=== PATIENT | male | born 1965 | race Caucasian/White ===

== ENCOUNTER → 2019-12-05 12:18 | Outpatient (BNVA) | payer SELFPAY | PROVIDERS: Visit Provider Specialist | DX: R20.0 Anesthesia of skin (principal) | CPT/HCPCS: 95909 ==

== ENCOUNTER → 2020-10-21 11:50 | Outpatient (BNVA) | payer SELFPAY | PROVIDERS: Visit Provider Specialist | DX: M25.522 Pain in left elbow (principal) | CPT/HCPCS: 73080 ==

== ENCOUNTER → 2020-12-10 08:22 | Outpatient (BNVA) | payer SELFPAY | PROVIDERS: Visit Provider Specialist | DX: G56.22 Lesion of ulnar nerve, left upper limb (principal); G56.03 Carpal tunnel syndrome, bilateral upper limbs | CPT/HCPCS: 95885; 95910; 99203 ==

== ENCOUNTER 2020-12-26 09:09 | Day surgery (SDC) | payer SELFPAY ==
[2020-12-25 10:48] VITALS: BMI 40.3
[2020-12-26] VITALS (8 sets, daily range): BP systolic 129–169; BP diastolic 95–109; PULSE 76–87; RESP 16–23; TEMP 36.1–36.6; O2SAT 94–100
[2020-12-26] MEDS: sodium chloride 0.9% 1,000 ML 30 ML IV (10:00)
--- NOTE | 2020-12-26 10:10 | ANES.PREANE2 ---
Pre-Anesthetic Assessment Pre-Anesthetic Assessment: Height/Weight: Height 1.68 m Weight 113.398 kg Temp Pulse Resp BP Pulse Ox 97.8 F 79 18 143/95 98 12/26/20 09:31 12/26/20 09:31 12/26/20 09:31 12/26/20 09:31 12/26/20 09:31 Preop Diagnosis: Carpal tunnel syndrome/Cubital tunnel syndrome left arm Proposed Procedure: Operation Date: 12/26/20 11:10 Proposed Procedures p right Carpal Tunnel Release [id number] G56.03 G56.21(Right) - Viraj Moreno MD s right Ulna Nerve Decompression(Right) - Viraj Moreno MD Was Beta Esteban taken within 24 hours: N/A Was Clonidine taken within 24 hours: N/A Last intake: Intake Last Liquid Date 12/25/20 Last Liquid Time 21:00 Last Solid Date 12/25/20 Last Solid Time 21:00 Social: Social History: Tobacco and No alcohol Exam: Pre-Anes Outpt Exam: alert, oriented x 3 and clear to auscultation bilaterally Airway: Submandibular: WNL Cervical ROM: WNL MP: 2 Pulmonary: Pulmonary: Cough CV/HEM: CV/HEM: None reported : : None reported Hepatic: Hepatic: None reported GI: GI: None reported Metabolic: Metabolic: None reported Musc/skel: Musc/skel: None reported Neuropsych: Neuropsych: Depression Anesthetic Plan: ASA status: 2 Anesthesia: General PFSH Anesthesia PFSH: Social History Smoking and tobacco status: current every day smoker (1 pack per day ) Data Anesthesia Cardiac Studies: No Data to Display
--- NOTE | 2020-12-26 10:58 | W.PM.OPSUD ---
Surgery/Procedure H&P Update DATE OF PROCEDURE: December 26, 2020 DATE H&P PERFORMED: 12/18/20 H&P UPDATE INFORMATION: I have reviewed H&P completed within last 30 days PREOP DIAGNOSIS: Carpal tunnel syndrome/Cubital tunnel syndrome left arm PLANNED PROCEDURE: Operation Date: 12/26/20 11:10 Proposed Procedures p Left Carpal Tunnel Release [id number] G56.03 G56.21(Left) - Viraj Moreno MD s right Ulna Nerve Decompression(Left) - Viraj Moreno MD
--- NOTE | 2020-12-26 11:00 | P.OP_ITS ---
Operative Report Date of procedure: December 26, 2020 Pre-op Diagnosis: Carpal tunnel syndrome/Cubital tunnel syndrome left arm Post-op diagnosis: same Post-op Findings: Same Procedure Done: Compression, left carpal tunnel release Pathology: none sent Surgeon: Viraj Moreno Anesthesia: General Tourniquet time (min): 15 Condition: stable Disposition: PACU Procedure: The patient was taken to the operating room and given a general anesthesia. A tourniquet was inflated to 225 mmHg. A timeout was performed. A 5 cm long incision was made behind the medial epicondyle. Dissection was accomplished bluntly under loupe magnification identifying the ulnar nerve proximally. Utilizing a hemostat the fascia over the nerve was elevated and incised proximally. Dissection was then carried distally behind the medial epicondyle and into the flexor carpi ulnaris musculature. Dissection was stopped with the first muscular branches identified. Elbow was brought through range of motion with the nerve seen to stay reduced behind the medial epicondyle. No formal transition was thought to be warranted. Wound edges were infiltrated with 10 cc of a half percent Marcaine solution. The wound was packed with a moist saline sponge. A 3 cm long incision was made in line with the fourth ray from the distal edge of the carpal tunnel extending proximally. The subcutaneous fat and palmar fascia was divided with a scalpel blade. Under loupe magnification the ulnar neurovascular bundle was identified distally. A hemostat could be passed under the transverse carpal ligament allowing the distal 25% to be divided. A slotted guide was then passed beneath the transverse carpal ligament and the middle 50% divided. Blunt scissors were then passed over the guide freeing the proximal ligament. The tourniquet was deflated. Hemostasis provided with electrocautery. Wound edges were infiltrated with 10 cc of a half percent Marcaine solution. Deep tissues were closed about the elbow were closed with with 2-0 Vicryl. Subcutaneous is closed with 3-0 Vicryl. The skin was closed with a running 3-0 Prolene over the elbow and interrupted Prolene sutures about the hand. Steri- Strips were applied over the elbow.. Xeroform gauze, 4 x 4's, compressive labral, and Raúl wrap, and a sling were applied. The patient was taken recovery room in stable condition.
[2020-12-26] MEDS: HYDROcodone-acetaminophen 5-325 mg Tablet 1 TAB PO (13:11)
--- NOTE | 2020-12-26 15:13 | ANE.PACU2 ---
Inpatient post-anesthesia follow up: Airway intact: Yes Vital signs: Temperature 97.8 F Pulse Rate 77 Respiratory Rate 18 Blood Pressure 129/96 Pulse Oximetry 96 Oxygen Delivery Me thod Room Air Oxygen Flow Rate 8 Fraction of Inspir ed Oxygen Hydration adequate: Yes Nausea and vomiting: No Pain level: 4 Mental status: Baseline
== END 2020-12-26 13:33 | disposition home or self-care (01) ==
PROVIDERS: PCP Nurse Practitioner; Visit Provider Orthopaedic Surgery
PROC: (CPT 64721; principal; 2020-12-26 10:50)
PROC: (CPT 64718; 2020-12-26 10:50)
DX: G56.02 Carpal tunnel syndrome, left upper limb (principal); G56.22 Lesion of ulnar nerve, left upper limb; F17.210 Nicotine dependence, cigarettes, uncomplicated
CPT/HCPCS: 64718; 64721; J0690; J1100; J2405; J2704; J2710; J3010; J3490; J7030

== ENCOUNTER → 2021-06-23 09:14 | Outpatient (BNVA) | payer BC, MEDICAID, SELFPAY | PROVIDERS: PCP Nurse Practitioner; Visit Provider Surgery | DX: Z86.010 Personal history of colon polyps (principal) | CPT/HCPCS: 87635 ==

== ENCOUNTER 2021-06-26 08:16 | Day surgery (SDC) | payer BC, MEDICAID, SELFPAY ==
--- NOTE | 2021-06-26 08:34 | ANES.PREANE2 ---
Pre-Anesthetic Assessment Pre-Anesthetic Assessment: Height/Weight: Height 1.68 m Weight 108.862 kg Preop Diagnosis: Abdominal pain and history of colon polyps Proposed Procedure: Operation Date: 06/26/21 09:30 Proposed Procedures p Colonoscopy 62376 Z86.010(Not Applicable) - Roger Barreto MD Was Beta Esteban taken within 24 hours: N/A Was Clonidine taken within 24 hours: N/A Social: Social History: Tobacco and No alcohol Exam: Pre-Anes Outpt Exam: alert, oriented x 3 and regular rate & rhythm Additional Exam Findings (including area of procedure): rhonchi Airway: Submandibular: WNL Cervical ROM: WNL MP: 2 Dentition: False Pulmonary: Pulmonary: COPD CV/HEM: CV/HEM: HTN Metabolic: Metabolic: Morbid obesity Neuropsych: Neuropsych: Neuropathy (upper extremity) Anesthetic Plan: ASA status: 3 Anesthesia: MAC Risk of > 500 ml blood loss (7ml/kg in children): No Data Anesthesia Cardiac Studies: No Data to Display
[2021-06-26 08:45] VITALS: BP 133/97; PULSE 88; RESP 16; TEMP 36.6; O2SAT 97
[2021-06-26] MEDS: sodium chloride 0.9% 1,000 ML 30 ML IV (08:59)
--- NOTE | 2021-06-26 09:11 | P.HP_ITS ---
Same Day Surgery H&P Indication for Procedure/HPI DATE OF PROCEDURE: June 26, 2021 CHIEF COMPLAINT/INDICATIONFOR SURGICAL PROCEDURE: Abdominal pain and colon polyps PREOP DIAGNOSIS: Abdominal pain and history of colon polyps PLANNED PROCEDRUE: Operation Date: 06/26/21 09:30 Proposed Procedures p Colonoscopy 97710 Z86.010(Not Applicable) - Roger Barreto MD 04/14/21 This is a pleasant 55 years old gentleman with history of obesity and a current weight of 240 pounds and a BMI of 38.7. Smoker. Comes today concerning about his umbilical hernia that is hurting him. Patient reports that he had this hernia for a while but it is becoming bothering him. Previous colonoscopy was done few years ago and had polyps removed. Patient describes abdominal pain being sharp and whenever he hits his abdomen it does hurt and gets better by nothing in particular. The pain is not being referred. Patient is referred to my practice for further evaluation and potential management. 06/26/21 Patient comes today for surveillance colonoscopy, unfortunately insurance denied the CT scan of the abdomen and pelvis and patient continues to have his abdominal wall hernia. The CT scan was ordered in preparation and planning for surgery ROS All systems have been reviewed negative except as for the above or per problem list Medications/Allergies* Home Medications Medication Instructions Recorded Confirmed Type furosemide 20 mg tablet 20 mg PO DAILY 04/14/21 06/26/21 History quetiapine 25 mg tablet 50 mg PO DAILY 04/14/21 06/26/21 History Allergies/Adverse Reactions Allergy/AdvReac Type Severity Reaction Status Date / Time acetaminophen [From Percocet] Allergy Severe feels Verified 06/26/21 09:15 like bugs crawling oxycodone [From Percocet] Allergy Severe feels Verified 06/26/21 09:15 like bugs crawling Current Medications: Generic Name Dose Route Start Last Admin Trade Name Freq PRN Reason Stop Dose Admin Sodium Chloride 1,000 mls @ 30 mls/hr 06/26/21 08:30 06/26/21 08:59 Sodium Chloride 0.9% IV 30 mls/hr .Q24H MAHENDRA Administration Pertinent Exam Findings alert, oriented x 3 and procedure specific exam findings (Abdominal examination nontender nondistended morbidly obese with umbilical ) Chronically incarcerated umbilical hernia Recommendations Surgery/Procedure today (Colonoscopy with possible biopsy) Coding Level of Care Code Acute Return To Vendor for Isela Christina
[2021-06-26 10:50] VITALS: BP 140/105; PULSE 79; RESP 16; TEMP 36.3; O2SAT 99
[2021-06-26 11:06] VITALS: BP 142/89; PULSE 72; RESP 18; O2SAT 97
--- NOTE | 2021-06-26 11:19 | ANE.PACU2 ---
Inpatient post-anesthesia follow up: Airway intact: Yes Vital signs: Temperature 97.4 F Pulse Rate 72 Respiratory Rate 18 Blood Pressure 142/89 Pulse Oximetry 97 Oxygen Delivery Me thod Room Air Oxygen Flow Rate 3 Fraction of Inspir ed Oxygen Hydration adequate: Yes Nausea and vomiting: No Pain level: 1 Mental status: Baseline
== END 2021-06-26 11:45 | disposition home or self-care (01) ==
PROVIDERS: PCP Nurse Practitioner; Visit Provider Surgery
PROC: 0DJD8ZZ Inspection of Lower Intestinal Tract, Via Natural or Artificial Opening Endoscopic (ICD-10-PCS; CPT 45378; principal; 2021-06-26 09:30)
DX: Z12.11 Encounter for screening for malignant neoplasm of colon (principal); Z86.010 Personal history of colon polyps; F17.210 Nicotine dependence, cigarettes, uncomplicated; K63.89 Other specified diseases of intestine; J44.9 Chronic obstructive pulmonary disease, unspecified; I10 Essential (primary) hypertension; E66.01 Morbid (severe) obesity due to excess calories; Z68.38 Body mass index [BMI] 38.0-38.9, adult
CPT/HCPCS: 45380; 88305; 96360; 96361; J2704; J7030

== ENCOUNTER 2021-08-07 09:46 | Outpatient (CLI) | payer BC, MEDICAID, SELFPAY ==
--- NOTE | 2021-08-07 10:15 | US_ITS ---
WS: [id number] ULTRASOUND ABDOMEN CLINICAL INFORMATION: R10.9 - Unspecified abdominal pain COMPARISON: None. FINDINGS: Supraumbilical hernia measuring 3.4 x 1.5 cm with hernia neck measuring 1.5 cm. Associated vascularity. Herniated soft tissue likely omentum extends into the hernia defect. No definite perista lsis visualized. Bowel appears to abut the defect but no definite herniated bowel. Recommend further evaluation with CT. Liver Size: Upper limits of normal Craniocaudal length: 15.8 cm. Echogenicity: Coarse Surface nodularity: None. Mass (size and location): None. Bile ducts Intrahepatic ducts: Normal. Common bile duct diameter: 0.4 cm. Gallbladder Normal. Gallstones: None. Gallbladder sludge: None. Gallbladder wall thickening: None. Pericholecystic fluid: None. Sonographic Gann sign: Absent. Pancreas Normal as visualized. Spleen Splenomegaly: Mild Craniocaudal length: 12.8 cm. Right kidney: Normal. Hydronephrosis: None. Size: 12.2 cm x 5.5 cm x 5.6 cm Left kidney: Normal. Hydronephrosis: None. Size: 13.3 cm x 4.6 cm x 5.8 cm. Abdominal aorta and IVC Visualized portions are normal. Ascites: None. US/US abdomen complete* [id number] IMPRESSION: 1. Liver size upper limits of normal with diffuse fatty infiltration. 2. Normal gallbladder. 3. No hydronephrosis in either kidney. 4. Mild splenomegaly. 5. Supraumbilical hernia measuring 3.4 x 1.5 cm with hernia neck measuring 1.5 cm. Herniated soft tissue that likely represents omentum. Bowel abuts the alyse ia neck although no definite visualized peristalsis within the hernia sac. This can be further evaluated with CT for better anatomic detail and to assess for herniated bowel.
== END 2021-08-07 09:47 | disposition home or self-care (01) ==
LOC: RAD 09:48
PROVIDERS: PCP Nurse Practitioner; Visit Provider Surgery
DX: R10.9 Unspecified abdominal pain (principal); K76.0 Fatty (change of) liver, not elsewhere classified; R16.1 Splenomegaly, not elsewhere classified; K43.9 Ventral hernia without obstruction or gangrene
CPT/HCPCS: 76700

== ENCOUNTER → 2021-08-11 10:31 | Outpatient (BNVA) | payer BC, MEDICAID, SELFPAY | PROVIDERS: PCP Nurse Practitioner; Visit Provider Surgery | DX: Z20.822 Contact with and (suspected) exposure to COVID-19 (principal) | CPT/HCPCS: 87635 ==

== ENCOUNTER 2021-08-12 11:15 | Day surgery (SDC) | payer BC, MEDICAID, SELFPAY ==
[2021-08-11 14:58] VITALS: BMI 38.3
[2021-08-12] VITALS (8 sets, daily range): BP systolic 131–145; BP diastolic 85–99; PULSE 74–87; RESP 17–18; TEMP 36.2–36.6; O2SAT 94–97
[2021-08-12] MEDS: sodium chloride 0.9% 1,000 ML 30 ML IV (12:25)
[2021-08-12] MEDS: heparin 5,000 unit/mL INJ 1 mL 3000 UNIT SUBCUT (12:28)
--- NOTE | 2021-08-12 12:46 | P.HP_ITS ---
Same Day Surgery H&P Indication for Procedure/HPI DATE OF PROCEDURE: August 12, 2021 CHIEF COMPLAINT/INDICATIONFOR SURGICAL PROCEDURE: My hernia is bothering me PREOP DIAGNOSIS: Symptomatic umbilical hernia PLANNED PROCEDURE: Operation Date: 08/12/21 13:30 Proposed Procedures p open supraumbilical hernia repair with poss mesh [id number]/63966/k42.9(Not Applicable) - Roger Barreto MD This is a pleasant 56 years old gentleman obese with a current weight of 245 pounds and a BMI of 38.4, patient presented to my practice back in 04/14/21 complaining of periumbilical hernia and he was due for colonoscopy regardless that was done and polyps were removed. Patient was supposed to get a CT scan of the abdomen pelvis per my request to have a better understanding of the underlying surgical damage hernia but that got denied per insurance. And patient undergone ultrasound of the abdomen that did show; 1.? Liver size upper limits of normal with diffuse fatty infiltration. 2.? Normal gallbladder. 3.? No hydronephrosis in either kidney. 4.? Mild splenomegaly. 5.? Supraumbilical hernia measuring 3.4 x 1.5 cm with hernia neck measuring 1.5 cm. Herniated soft tissue that likely represents omentum. Bowel abuts the hernia neck although no definite visualized peristalsis within the hernia sac. This can be further evaluated with CT for better anatomic detail and to assess for herniated bowel. Patient is scheduled for elective umbilical hernia repair with possible mesh placement ROS All systems have been reviewed negative except as per the above or per problem list Medications/Allergies* Home Medications Medication Instructions Recorded Confirmed Type furosemide 20 mg tablet (Lasix) 20 mg PO DAILY 04/14/21 08/12/21 History quetiapine 25 mg tablet (Seroquel) 50 mg PO DAILY 04/14/21 08/12/21 History Allergies/Adverse Reactions Allergy/AdvReac Type Severity Reaction Status Date / Time oxycodone [From Percocet] Allergy Severe feels Verified 08/12/21 12:48 like bugs crawling Current Medications: Generic Name Dose Route Start Last Admin Trade Name Freq PRN Reason Stop Dose Admin Sodium Chloride 1,000 mls @ 30 mls/hr 08/12/21 11:45 08/12/21 12:25 Sodium Chloride 0.9% IV 08/13/21 11:44 30 mls/hr .Q24H MAHENDRA Administration Pertinent Exam Findings alert, oriented x 3, regular rate & rhythm and procedure specific exam findings (Abdominal examination nontender nondistended soft periumbilical hernia) Pertinent Data Chronic incarcerated periumbilical hernia Recommendations Surgery/Procedure today (Open umbilical hernia repair with possible mesh placement) Other Plans: After thorough history physical examination reviewed the chart. Plan to perform an open umbilical hernia repair with possible mesh placement. The patient's, risks, benefits and alternatives all discussed with the patient did agree to proceed accordingly. Informed consent per chart. Patient understands the potential risks of being obese and higher chance of recurrence. Assurance and education All questions have been answered and all concerns have been addressed to patient's satisfaction. Coding Level of Care Code Acute Power Transformer Inspector for Isela Christina
--- NOTE | 2021-08-12 12:55 | ANES.PREANE2 ---
Pre-Anesthetic Assessment Height/Weight: Height 1.7 m Weight 111.13 kg Temp Pulse Resp BP Pulse Ox 97.8 F 74 17 135/85 95 08/12/21 11:57 08/12/21 11:57 08/12/21 11:57 08/12/21 11:57 08/12/21 11:57 Preop Diagnosis: Symptomatic umbilical hernia Operation Date: 08/12/21 13:30 Proposed Procedures p open supraumbilical hernia repair with poss mesh [id number]/k42.9(Not Applicable) - Roger Barreto MD Familial anesthetic complications: None Was Beta Esteban taken within 24 hours: N/A Was Clonidine taken within 24 hours: N/A Last intake: Intake Last Liquid Date 08/11/21 Last Liquid Time 18:00 Last Solid Date 08/11/21 Last Solid Time 18:00 Social Tobacco and No alcohol Exam alert, oriented x 3 and regular rate & rhythm b/l lung sounds diminished Airway Submandibular: within normal limits Cervical ROM: within normal limits Mallampati: Class I Dentition: false Pulmonary Denies ELOY, COPD, asthma CV/HEM Hypertension METS = 4 None reported Hepatic None reported GI None reported Metabolic None reported Musc/skel None reported Umbilical hernia Neuropsych None reported Anesthetic Plan ASA status: 2 Anesthesia: Anesthesia Evaluation and General Other: We discussed risk and benefits of general anesthesia including PONV, sore throat (sometimes severe), corneal abrasion, positioning and peripheral nerve injuries, life threatening allergic reaction, post operative ICU admission requiring prolonged intubation, stroke, heart attack, , and rare incidences of recall. Patient consents to proceed with general anesthesia. Risk of > 500 ml blood loss (7ml/kg in children): No Medications/Allergies Home Medications Medication Instructions Recorded Confirmed Last Taken Type furosemide 20 mg tablet (Lasix) 20 mg PO DAILY 04/14/21 08/12/21 08/11/21 History quetiapine 25 mg tablet (Seroquel) 50 mg PO DAILY 04/14/21 08/12/21 08/11/21 History Allergies Allergy/AdvReac Type Severity Reaction Status Date / Time oxycodone [From Percocet] Allergy Severe feels Verified 08/12/21 12:48 like bugs crawling Current Medications Generic Name Dose Route Start Last Admin Trade Name Freq PRN Reason Stop Dose Admin Sodium Chloride 1,000 mls @ 30 mls/hr 08/12/21 11:45 08/12/21 12:25 Sodium Chloride 0.9% IV 08/13/21 11:44 30 mls/hr .Q24H MAHENDRA Administration Data Anesthesia Cardiac Studies: No Data to Display
[2021-08-12] MEDS: acetaminophen 1,000 MG/100 ML PIGGYBACK 400 MG IV (13:02)
[2021-08-12 13:10] LABS: Blood Urea Nitrogen 14 mg/dL (6-20); Calcium 9.7 mg/dL (8.5-10.5); Carbon Dioxide 21 mmol/L (22-29); Chloride 105 mmol/L (98-107); Glomerular Filtration Rate 173.3 mL/min (90-130); Glucose 109 mg/dL (65-115); Osmolality Calculated 287 mOsm/kg (285-295); Sodium 138 mmol/L (136-145)
[2021-08-12 13:21] LABS: Anion Gap 16.4 (5-19); Potassium 4.4 mmol/L (3.5-5.1)
[2021-08-12] MEDS: lidocaine 2% INJ 20 mL INJECTION (14:04)
--- NOTE | 2021-08-12 14:35 | PM.OP ---
Operative Report Date of procedure: August 12, 2021 Pre-op diagnosis: Preop Diagnosis Symptomatic umbilical hernia Post-op findings: Umbilical fascial defect about an inch in diameter Procedure done: Open umbilical hernia repair with mesh placement on lay technique Implants: Polypropylene mesh 5 x 10 cm that was cut down to about 7 x 4 Specimens removed/disposition: Hernial sac and content Surgeon: Roger Barreto MD Orthopaedic General: Surgical techJeff Luna, and surgical instrument repair specialist Zach Estimated blood loss (mL): 5 IV fluids (mL): 600 Procedure: Patient was identified in holding area and the site of the hernia was marked by me ,Patient was brought then to the operating room, general endotracheal anesthesia was administered by the anesthesia provider.prophylactic IV antibiotics were given per protocol Timeout was done verifying the patient's name/date of /planned procedure and destination after the procedure, all were in agreement. SCDs confirmed to be functioning, preoperative antibiotics administered per protocol, and beta eunice protocol was confirmed. Prep and drape of the abdomen was done under the usual sterile technique. I started by infraumbilical skin incision,and dissection was carried till the hernia sac was identified and opened,following that trimming of the edges and excising the sac,were sac and contents(Omentum) were sent for pathology.At that point the fascial defect was about an inch in diameter, after freeing all the adhesions and freeing the overlying fat on top of the fascia,to facilitate primary closure, under direct visualization I was able to use #1 PDS to close the defect primarily, as an interrupted [id number] sutures,copious and through irrigation of the wound was then achieved and hemostasis. A piece of Polyproylene mesh was then decided upon and placed as an on lay technique and sutured to the underluing fascia using intrupted 2/0 silk sutures,Tension free.Following that a 2/0 Vicryl running,continiuos deep subdermal stitch was placed,followed by 3-0 Vicryl,then 4-0 Monocryl was used for subcuticular closure of the skin incision.Lidocaine 2% was used for local infiltration.Surical glue was then applied.Followed by appropraie size Abdominal Binder. Counts of sponges,needles and instruments were completed at the end of the procedure and specimen was verified. Patient tolerated the procedure well and was taken to the recovery area in stable condition after Extubation I was present for the whole entire procedure
[2021-08-12] MEDS: HYDROcodone-acetaminophen 5-325 mg Tablet 1 TAB PO (15:55)
--- NOTE | 2021-08-12 16:12 | ANE.PACU2 ---
Inpatient post-anesthesia follow up: Airway intact: Yes Vital signs: Temperature 97.2 F Pulse Rate 82 Respiratory Rate 18 Blood Pressure 131/99 Pulse Oximetry 96 Oxygen Delivery Me thod Room Air Oxygen Flow Rate 6 Fraction of Inspir ed Oxygen Hydration adequate: Yes Nausea and vomiting: No Pain level: 2 Mental status: Baseline
== END 2021-08-12 16:05 | disposition home or self-care (01) ==
PROVIDERS: PCP Nurse Practitioner; Visit Provider Surgery
PROC: (CPT 49585; principal; 2021-08-12 13:20)
DX: K42.9 Umbilical hernia without obstruction or gangrene (principal); K76.0 Fatty (change of) liver, not elsewhere classified; R16.1 Splenomegaly, not elsewhere classified
CPT/HCPCS: 49585; 36415; 80048; 88302; C1781; J0690; J1100; J1644; J2405; J2704; J2710; J3010; J3490; J7030

== ENCOUNTER → 2021-10-02 12:54 | Outpatient (BNVA) | payer BC, MEDICAID, SELFPAY | PROVIDERS: PCP Nurse Practitioner; Visit Provider Surgery | DX: Z09 Encounter for follow-up examination after completed treatment for conditions other than malignant neoplasm (principal); K63.9 Disease of intestine, unspecified ==

== ENCOUNTER → 2021-10-23 12:49 | Outpatient (BNVA) | payer BC, MEDICAID, SELFPAY | PROVIDERS: PCP Nurse Practitioner; Visit Provider Surgery | DX: Z98.890 Other specified postprocedural states (principal); K63.9 Disease of intestine, unspecified; F17.210 Nicotine dependence, cigarettes, uncomplicated ==

== ENCOUNTER 2022-03-16 20:00 | Outpatient (CLI) | payer BC, MEDICAID, SELFPAY | END 2022-03-16 20:01 | disposition home or self-care (01) | LOC: SLEEP 03-17 08:10 | PROVIDERS: PCP Nurse Practitioner; Visit Provider Nurse Practitioner | DX: G47.00 Insomnia, unspecified (principal); G47.33 Obstructive sleep apnea (adult) (pediatric) | CPT/HCPCS: 95810 ==

== ENCOUNTER 2022-05-25 06:40 | Day surgery (SDC) | payer BC, MEDICAID, SELFPAY ==
[2022-05-19 09:26] VITALS: BMI 40.3
--- NOTE | 2022-05-25 06:14 | W.PM.OPSFHP ---
Same Day Surgery H&P Indication for Procedure/HPI DATE OF PROCEDURE: May 25, 2022 CHIEF COMPLAINT/INDICATIONFOR SURGICAL PROCEDURE: History of colon polyps PREOP DIAGNOSIS: Symptomatic umbilical hernia PLANNED PROCEDURE: Operation Date: 05/25/22 08:45 Proposed Procedures p Colonoscopy 86688,Z86.010(Not Applicable) - Roger Barreto MD 08/20/2021 Patient comes today status post open umbilical hernia repair with mesh placement 08/12/2021.? Overall doing well and denies any complaints unfortunately he continues to smoke. Pathology did show Soft tissue, hernia sac , excision: ?Benign fibroadipose tissue with chronic inflammation, consistent with hernia sac contents. ?No malignancy identified. 10/02/2021 Patient comes today and overall has been feeling well and healing better.? Unfortunately continues to smoke and is not compliant with the abdominal binder as it rubs against the skin.? Patient continues to have obesity status with a weight of 250 pounds and BMI of 39. He denies any complaints related to his surgery 10/23/2021 Patient comes today for follow-up and he is completely healed.? Unfortunately continues to smoke and a current weight of 247 pounds and a BMI of 38.7 02/19/2022 She comes today for follow-up and he did have a colonoscopy back in June 2021 and at that time a cecal polyp was identified yet it was bigger in size and pathology at that time did show; Cecum, mucosal thickness lesion , biopsy: ? Fragmented tubular adenoma (adenomatous changes identified within glandular epithelium). ? No high-grade dysplasia identified. Because of the size of the polyp I did recommend to obtain repeat colonoscopy in/within a year time to secure complete excision of the polyp particularly that the patient is a high risk since his morbidly obese and a chronic smoker. 05/25/2022 Patient comes today for surveillance colonoscopy ROS All systems have been reviewed negative except as for the above or per problem list. Medications/Allergies* Home Medications Medication Instructions Recorded Confirmed Type ropinirole 3 mg tablet 3 mg PO DAILY 05/11/22 05/25/22 History trazodone 50 mg tablet 150 mg PO DAILY 05/11/22 05/25/22 History Allergies/Adverse Reactions Allergy/AdvReac Type Severity Reaction Status Date / Time oxycodone [From Percocet] Allergy Severe feels Verified 05/25/22 07:37 like bugs crawling Pertinent History/Comorbid Conditions* Medical History (Updated 05/11/22 @ 10:32 by Hermilo Lake DO) History of colon polyps Insomnia Sleep apnea Umbilical hernia Family History (Updated 05/11/22 @ 09:52 by Tiffanie Cartwright LPN) Cancer Mother Father Brother Social History Smoking and tobacco status: current every day smoker cigarettes Packs smoked per day: 2 Alcohol intake: current Alcohol intake frequency: holidays/special occasions only Pertinent Exam Findings alert, oriented x 3, regular rate & rhythm and procedure specific exam findings (Abdominal exam nontender nondistended soft) Recommendations Surgery/Procedure today (Colonoscopy with possible biopsy) Coding Level of Care Code Acute Fire Extinguisher Technician for Isela Christina
[2022-05-25 06:55] VITALS: BP 140/108; PULSE 89; RESP 18; TEMP 36.5; O2SAT 97
[2022-05-25] MEDS: sodium chloride 0.9% 1,000 ML 30 ML IV (07:01)
[2022-05-25 09:15] VITALS: BP 110/75; PULSE 71; RESP 20; TEMP 36.4; O2SAT 93
--- NOTE | 2022-05-25 09:18 | ANES.PREANE2 ---
Pre-Anesthetic Assessment Height/Weight: Height 1.68 m Weight 113.398 kg Temp Pulse Resp BP Pulse Ox O2 Del Method 97.7 F 89 18 140/108 97 05/25/22 06:55 05/25/22 06:55 05/25/22 06:55 05/25/22 06:55 05/25/22 06:55 05/25/22 06:55 Preop Diagnosis: History of colon polyp Operation Date: 05/25/22 08:45 Proposed Procedures p Colonoscopy 12697,Z86.010(Not Applicable) - Roger Barreto MD Familial anesthetic complications: none Was Beta Esteban taken within 24 hours: N/A Was Clonidine taken within 24 hours: N/A Last intake: Intake Last Liquid Date 05/24/22 Last Liquid Time 20:00 Last Solid Date 05/23/22 Last Solid Time 19:00 Social Tobacco and No alcohol Exam alert, oriented x 3 and regular rate & rhythm Airway Submandibular: within normal limits Cervical ROM: within normal limits Mallampati: Class II Dentition: false Pulmonary Chronic Obstructive Pulmonary Disease and Sleep Apnea Metabolic Morbid Obesity Neuropsych Neuropathy Anesthetic Plan ASA status: 3 Anesthesia: MAC Medications/Allergies Home Medications Medication Instructions Recorded Confirmed Last Taken Type ropinirole 3 mg tablet 3 mg PO DAILY 05/11/22 05/25/22 05/24/22 History trazodone 50 mg tablet 150 mg PO DAILY 05/11/22 05/25/22 05/24/22 History Allergies Allergy/AdvReac Type Severity Reaction Status Date / Time oxycodone [From Percocet] Allergy Severe feels Verified 05/25/22 07:37 like bugs crawling Current Medications Generic Name Dose Route Start Last Admin Trade Name Freq PRN Reason Stop Dose Admin Sodium Chloride 1,000 mls @ 30 mls/hr 05/25/22 07:00 05/25/22 07:01 Sodium Chloride 0.9% IV 05/26/22 06:59 30 mls/hr .Q24H MAHENDRA Administration PFSH Anesthesia Medical History (Updated 05/25/22 @ 09:17 by Roger Barreto MD) History of colon polyps Insomnia Sleep apnea Umbilical hernia Family History Mother Cancer Father Cancer Brother Cancer Social History Smoking and tobacco status: current every day smoker cigarettes Packs smoked per day: 2 Alcohol intake: current Alcohol intake frequency: holidays/special occasions only Data Anesthesia Cardiac Studies: No Data to Display
[2022-05-25 09:30] VITALS: BP 133/92; PULSE 81; RESP 18; O2SAT 99
--- NOTE | 2022-05-25 15:33 | ANE.PACU2 ---
Inpatient post-anesthesia follow up: Airway intact: Yes Vital signs: Temperature 97.6 F Pulse Rate 81 Respiratory Rate 18 Blood Pressure 133/92 Pulse Oximetry 99 Oxygen Delivery Me thod Room Air Oxygen Flow Rate 3 Fraction of Inspir ed Oxygen Hydration adequate: Yes Nausea and vomiting: No Pain level: 1 Mental status: Baseline
== END 2022-05-25 10:00 | disposition home or self-care (01) ==
PROVIDERS: PCP Nurse Practitioner; Visit Provider Surgery
PROC: 0DJD8ZZ Inspection of Lower Intestinal Tract, Via Natural or Artificial Opening Endoscopic (ICD-10-PCS; CPT 45378; principal; 2022-05-25 08:45)
DX: Z86.010 Personal history of colon polyps (principal); K57.30 Diverticulosis of large intestine without perforation or abscess without bleeding; D12.0 Benign neoplasm of cecum; D12.5 Benign neoplasm of sigmoid colon; J44.9 Chronic obstructive pulmonary disease, unspecified; G47.30 Sleep apnea, unspecified; E66.01 Morbid (severe) obesity due to excess calories; Z68.41 Body mass index [BMI] 40.0-44.9, adult; F17.210 Nicotine dependence, cigarettes, uncomplicated
CPT/HCPCS: 45385; 88305; J2704; J7030

== ENCOUNTER 2022-06-11 06:14 | Day surgery (SDC) | payer BC, MEDICAID, SELFPAY ==
[2022-06-09 08:24] VITALS: BMI 41.1
--- NOTE | 2022-06-11 06:16 | W.PM.OPSUD ---
Surgery/Procedure H&P Update DATE OF PROCEDURE: June 11, 2022 DATE H&P PERFORMED: 06/03/22 H&P UPDATE INFORMATION: I have reviewed H&P completed within last 30 days, I have examined patient prior to procedure and No changes to prior documentation CHANGES TO PREVIOUS DOCUMENTATION: The same PREOP DIAGNOSIS: Repeated nausea and vomiting PRIMARY INDICATION FOR PROCEDURE: The same PLANNED PROCEDURE: Operation Date: 06/11/22 07:30 Proposed Procedures p EGD 38743 R11.2(Not Applicable) - Roger Barreto MD
[2022-06-11 06:22] VITALS: BP 146/92; PULSE 86; RESP 18; TEMP 36.2; O2SAT 99
[2022-06-11] MEDS: sodium chloride 0.9% 1,000 ML 30 ML IV (06:29)
--- NOTE | 2022-06-11 07:01 | P.ANESASSM_ITS ---
Pre-Anesthetic Assessment Height/Weight: Height 1.68 m Weight 115.666 kg Temp Pulse Resp BP Pulse Ox O2 Del Method 97.2 F L 86 18 146/92 99 06/11/22 06:22 06/11/22 06:22 06/11/22 06:22 06/11/22 06:22 06/11/22 06:22 06/11/22 06:22 Preop Diagnosis: Repeated nausea and vomiting Operation Date: 06/11/22 07:30 Proposed Procedures p EGD 61127 R11.2(Not Applicable) - Roger Barreto MD Familial anesthetic complications: none Was Beta Esteban taken within 24 hours: N/A Was Clonidine taken within 24 hours: N/A Last intake: Intake Last Liquid Date 06/10/22 Last Liquid Time 23:00 Last Solid Date 06/10/22 Last Solid Time 18:00 Social Tobacco (>1 ppd, smoked this AM) and No alcohol Exam alert and oriented x 3 Airway Submandibular: within normal limits Cervical ROM: within normal limits Mallampati: Class III Dentition: false History/ROS No significant history except as noted Pulmonary Sleep Apnea CV/HEM None reported None reported Hepatic None reported GI Gastroesophageal Reflux Disease Metabolic Morbid Obesity [facility] [place] None reported Neuropsych None reported Anesthetic Plan ASA status: 3 Anesthesia: Anesthesia Evaluation and MAC Medications/Allergies Home Medications Medication Instructions Recorded Confirmed Last Taken Type ropinirole 3 mg tablet 3 mg PO DAILY 05/11/22 06/09/22 06/10/22 History Allergies Allergy/AdvReac Type Severity Reaction Status Date / Time oxycodone [From Percocet] Allergy Severe feels Verified 06/09/22 08:22 like bugs crawling Current Medications Generic Name Dose Route Start Last Admin Trade Name Freq PRN Reason Stop Dose Admin Sodium Chloride 1,000 mls @ 30 mls/hr 06/11/22 06:15 06/11/22 06:29 Sodium Chloride 0.9% IV 06/12/22 06:14 30 mls/hr .Q24H MAHENDRA Administration PFSH Anesthesia Medical History History of colon polyps Insomnia Sleep apnea Umbilical hernia Family History Mother Cancer Father Cancer Brother Cancer Social History Smoking and tobacco status: current every day smoker cigarettes Packs smoked per day: 2 Alcohol intake: current Alcohol intake frequency: holidays/special occasions only Data Anesthesia Cardiac Studies: No Data to Display
[2022-06-11 07:50] VITALS: BP 103/80; PULSE 79; RESP 18; TEMP 36.3; O2SAT 92
[2022-06-11 08:05] VITALS: BP 114/79; PULSE 67; RESP 18; O2SAT 96
--- NOTE | 2022-06-11 08:07 | ANE.PACU2 ---
Inpatient post-anesthesia follow up: Airway intact: Yes Vital signs: Temperature 97.4 F Pulse Rate 79 Respiratory Rate 18 Blood Pressure 103/80 Pulse Oximetry 92 Oxygen Delivery Me thod Room Air Oxygen Flow Rate Fraction of Inspir ed Oxygen Hydration adequate: Yes Nausea and vomiting: No Pain level: 1 Mental status: Baseline
== END 2022-06-11 08:31 | disposition home or self-care (01) ==
PROVIDERS: PCP Nurse Practitioner; Visit Provider Surgery
PROC: 0DJ08ZZ Inspection of Upper Intestinal Tract, Via Natural or Artificial Opening Endoscopic (ICD-10-PCS; CPT 43235; principal; 2022-06-11 07:30)
DX: K21.00 Gastro-esophageal reflux disease with esophagitis, without bleeding (principal); K29.50 Unspecified chronic gastritis without bleeding; K31.89 Other diseases of stomach and duodenum; R11.2 Nausea with vomiting, unspecified; B96.81 Helicobacter pylori [H. pylori] as the cause of diseases classified elsewhere; G47.30 Sleep apnea, unspecified; E66.01 Morbid (severe) obesity due to excess calories; Z68.41 Body mass index [BMI] 40.0-44.9, adult; F17.210 Nicotine dependence, cigarettes, uncomplicated
CPT/HCPCS: 43239; 88305; 88342; J2704; J7030

== ENCOUNTER 2022-07-01 01:00 | Outpatient (CLI) | payer BC, MEDICAID, SELFPAY | END 2022-07-01 23:00 | disposition home or self-care (01) | LOC: RAD 07-21 19:10 | PROVIDERS: PCP Nurse Practitioner; Visit Provider Surgery | DX: K30 Functional dyspepsia (principal) | CPT/HCPCS: 83036 ==

== ENCOUNTER 2022-09-29 06:20 | Outpatient (CLI) | payer BC, SELFPAY | END 2022-09-29 06:21 | disposition home or self-care (01) | LOC: SLEEP 09-30 06:21 | PROVIDERS: PCP Family Medicine; Visit Provider Family Medicine | DX: G47.00 Insomnia, unspecified (principal); G47.30 Sleep apnea, unspecified | CPT/HCPCS: 95811 ==

== ENCOUNTER 2022-10-16 07:55 | Outpatient (CLI) | payer BC, MEDICAID, SELFPAY ==
--- NOTE | 2022-10-16 08:15 | US_ITS ---
WS: [id number] RIGHT UPPER QUADRANT ULTRASOUND HISTORY: abdominal pain COMPARISON: 08/07/2021 Liver: 17.7 cm in length. Mildly enlarged liver with moderate hepatic steatosis. No mass or bile duct dilatation. Portal Vein: Normal hepatopetal flow with monophasic waveform. Gallbladder: Normally distended gallbladder with no stones or wall thickening. CBD: 0.3 cm Pancreas: Poorly visualized. Right kidney: 13.9 cm in length. Normal size and echogenicity. No hydronephrosis or mass. Aorta and IVC: Limited. No ascites. US/US gall bladder [id number] IMPRESSION: 1. Normal gallbladder. 2. Mild hepatomegaly with moderate hepatic steatosis.
== END 2022-10-16 07:56 | disposition home or self-care (01) ==
LOC: RAD 07:57
PROVIDERS: PCP Family Medicine; Visit Provider Surgery
DX: R10.9 Unspecified abdominal pain (principal); R16.0 Hepatomegaly, not elsewhere classified
CPT/HCPCS: 76705

== ENCOUNTER 2022-11-12 07:26 | Outpatient (CLI) | payer BC, MEDICAID, SELFPAY ==
--- NOTE | 2022-11-12 08:00 | NM_ITS ---
WS: [id number] NUCLEAR MEDICINE HIDA SCAN CLINICAL INFORMATION: abd pain TECHNIQUE: Following intravenous administration of 8.4 mCi of technetium 99m mebrofenin, images of th e abdomen were obtained over the course of 60 minutes. Next, gallbladder ejection fraction was determ ined by obtaining preprandial and one-hour postprandial images of the gallbladder following oral stephany stion of Ensure. COMPARISON: Ultrasound October 16, 2022 FINDINGS: Normal hepatic uptake at 5 minutes. Gallbladder is visualized by 10 minutes. No evidence of acute cho lecystitis. Normal small bowel and common bile duct activity. Normal hepatic excretion. Gallbladder ejection fraction 81% within normal limits. No evidence of chronic cholecystitis. NM/NM hepatobiliary w phar* [id number] IMPRESSION: 1. No evidence of acute or chronic cholecystitis. 2. Gallbladder ejection fraction 81% within normal limits.
== END 2022-11-12 07:27 | disposition home or self-care (01) ==
LOC: RAD 07:28
PROVIDERS: PCP Family Medicine; Visit Provider Surgery
DX: R10.11 Right upper quadrant pain (principal)
CPT/HCPCS: 78227; A9537

== ENCOUNTER 2022-11-12 09:59 | Outpatient (CLI) | payer OTHER, SELFPAY ==
--- NOTE | 2022-11-12 10:49 | XR_ITS ---
WS: [id number] Lumbar spine, 3 views, 11/12/2022 Clinical Data: LOW BACK PAIN Comparison: None. Findings: No compression fractures or subluxation is seen. There is degenerative disc narrowing at T12-L1 and L 1-L2. There are moderate anterior osteophytes from T12 through L1. The transverse processes and SI blanca ints are normal. There is calcification in the wall of the abdominal aorta but no aneurysm. XR/XR lumbar spine 2-3V* [id number] Impression: 1. Degenerative disc narrowing at T12-L1 and L1-L2. 2. Moderate anterior osteophytes T12-L1.
== END 2022-11-12 10:00 | disposition home or self-care (01) ==
LOC: RAD 10:01
PROVIDERS: PCP Family Medicine; Visit Provider Dermatology
DX: M51.36 Other intervertebral disc degeneration, lumbar region (principal); M48.061 Spinal stenosis, lumbar region without neurogenic claudication; M25.78 Osteophyte, vertebrae
CPT/HCPCS: 72100

== ENCOUNTER 2022-11-19 16:42 | Outpatient (CLI) | payer BC, MEDICAID, SELFPAY | END 2022-11-19 16:43 | disposition home or self-care (01) | LOC: LAB 17:01 | PROVIDERS: PCP Family Medicine; Visit Provider Surgery | DX: R10.9 Unspecified abdominal pain (principal) | CPT/HCPCS: 87338 ==

== ENCOUNTER → 2022-12-16 13:19 | Outpatient (BNVA) | payer BC, SELFPAY | PROVIDERS: PCP Family Medicine; Visit Provider Family Medicine | DX: M25.562 Pain in left knee (principal); S86.912A Strain of unspecified muscle(s) and tendon(s) at lower leg level, left leg, initial encounter; X58.XXXA Exposure to other specified factors, initial encounter | CPT/HCPCS: 73562 ==

== ENCOUNTER 2022-12-24 07:06 | Outpatient (CLI) | payer BC, MEDICAID, SELFPAY ==
--- NOTE | 2022-12-24 07:15 | MR_ITS ---
WS: [id number] MRI LEFT KNEE HISTORY: LEFT knee pain, limited range of motion. COMPARISON: Radiographs 12/08/2022 Anterior cruciate ligament: Intact. Posterior cruciate ligament: Intact. Medial collateral ligament: Intact but there is adjacent edema. Posterior lateral corner structures: Intact. Medial menisci: Intact. Normal signal, size and shape. Lateral meniscus: Intact. Normal signal, size and shape. Extensor mechanism: Distal quadriceps tendon and patellar tendons are intact. Fluid and soft tissue: Moderate to large effusion in the suprapatellar bursa with subcutaneous edema surrounding the knee. No Weaver's cyst. Osseous and articular structures: Patellofemoral compartment: Very mild increased signal without a defect involving the lateral patella r facet cartilage. No marrow edema. Medial compartment: Mild narrowing medial compartment with mild thinning and fissuring of the cartila ge. Focal cartilage defect towards the intercondylar notch of the femoral condyle. No fracture or mar row edema. Lateral compartment: Unremarkable. MR/MR knee LT wo con* [id number] IMPRESSION: 1. Moderate to large suprapatellar joint effusion with the diffuse soft tissue edema surrounding the knee. 2. Mild MCL sprain. No tear. 3. Mild narrowing of the medial compartment with thinning and fissuring of the cartilage. 4. Fracture or marrow edema is identified. 5. Small focal cartilage defect medial femoral condyle towards the intercondyl ar notch.
== END 2022-12-24 07:07 | disposition home or self-care (01) ==
LOC: RAD 07:08
PROVIDERS: PCP Family Medicine; Visit Provider Family Medicine
DX: S83.8X2A Sprain of other specified parts of left knee, initial encounter (principal); M94.8X6 Other specified disorders of cartilage, lower leg; X58.XXXA Exposure to other specified factors, initial encounter
CPT/HCPCS: 73721

== ENCOUNTER 2023-02-01 06:28 | Day surgery (SDC) | payer BC, MEDICAID, SELFPAY ==
[2023-01-29 08:14] VITALS: BMI 39.1
[2023-02-01] VITALS (12 sets, daily range): BP systolic 122–174; BP diastolic 67–98; PULSE 76–90; RESP 16–20; TEMP 36.2–37; O2SAT 90–99
[2023-02-01] MEDS: sodium chloride 0.9% 1,000 ML 30 ML IV (07:00)
--- NOTE | 2023-02-01 07:01 | PM.HP ---
Providers/Chief Complaint Primary Care Provider: Hermilo Lake DO Chief Complaint: 92738 R10.11 History of Present Illness Uriel Kim is a 57 year old male Medications/Allergies Home Medications Medication Instructions Recorded Confirmed Last Taken Type ropinirole 4 mg tablet 4 mg PO DAILY #90 tabs 09/24/22 02/01/23 01/30/23 Rx duloxetine 60 mg capsule,delayed 120 mg PO DAILY #60 caps 01/01/23 02/01/23 01/31/23 Rx release PFSH Acute PFSH: Medical History Alcoholic peripheral neuropathy Chronic post-traumatic stress disorder (PTSD) H. pylori infection History of colon polyps Hx of malignant carcinoid tumor of stomach Insomnia Psychiatric care Sleep apnea Umbilical hernia Surgical History History of ankle surgery left ankle-skin graft History of carpal tunnel release left History of colonoscopy Hx of appendectomy Hx of decompression of ulnar nerve left elbow and wrist Hx of umbilical hernia repair 08/12/21 Dr. Cadet Family History Mother Cancer Father Cancer Brother Cancer Social History Smoking and tobacco status: current every day smoker cigarettes Packs smoked per day: 2 Alcohol intake: current Alcohol intake frequency: holidays/special occasions only Vitals/I&O/Wt Last Vital Signs Temp 97.6 F 02/01/23 06:47 Pulse 84 02/01/23 06:47 Resp 16 02/01/23 06:47 BP 150/96 02/01/23 06:47 Pulse Ox 95 02/01/23 06:47 O2 Del Method Room Air 02/01/23 06:47 A&P Assessment and plan (1) Cholecystitis: Plan Laparoscopic cholecystectomy The risks and benefits of the procedure, including but not limited to, bleeding, infection, scar, numbness, pain, damage to surrounding structures, damage to common bile duct requiring additional surgery, conversion to an open procedure, were explained to the patient. He is understanding of the risks and wishes to proceed. Attestations Medical Necessity Statement*: home Coding Level of Care Code Acute Code for Chg Fwd Diagnoses Cholecystitis K81.9
--- NOTE | 2023-02-01 07:59 | ANES.PREANE2 ---
Pre-Anesthetic Assessment Height/Weight: Height 1.7 m Weight 113.398 kg Temp Pulse Resp BP Pulse Ox O2 Del Method 97.6 F 84 16 150/96 95 Room Air 02/01/23 06:47 02/01/23 06:47 02/01/23 06:47 02/01/23 06:47 02/01/23 06:47 02/01/23 06:47 Operation Date: 02/01/23 08:15 Proposed Procedures p 90076 lap norm R10.11(Not Applicable) - Kendrick Mcnulty DO Familial anesthetic complications: none Was Beta Esteban taken within 24 hours: N/A Was Clonidine taken within 24 hours: N/A Last intake: Intake Last Liquid Date 01/31/23 Last Liquid Time 23:00 Last Solid Date 01/31/23 Last Solid Time 20:00 Social Alcohol and Tobacco Exam alert, oriented x 3 and regular rate & rhythm Airway Submandibular: within normal limits Cervical ROM: within normal limits Mallampati: Class II Dentition: false Pulmonary Chronic Obstructive Pulmonary Disease and Sleep Apnea GI Gastroesophageal Reflux Disease Metabolic Morbid Obesity Neuropsych Anxiety, Depression and Neuropathy Anesthetic Plan ASA status: 3 Anesthesia: General Medications/Allergies Home Medications Medication Instructions Recorded Confirmed Last Taken Type ropinirole 4 mg tablet 4 mg PO DAILY #90 tabs 09/24/22 02/01/23 01/30/23 Rx duloxetine 60 mg capsule,delayed 120 mg PO DAILY #60 caps 01/01/23 02/01/23 01/31/23 Rx release Current Medications Generic Name Dose Route Start Last Admin Trade Name Freq PRN Reason Stop Dose Admin Sodium Chloride 1,000 mls @ 30 mls/hr 02/01/23 06:45 02/01/23 07:00 Sodium Chloride 0.9% IV 02/02/23 06:44 30 mls/hr .Q24H MAHENDRA Administration PFSH Anesthesia Medical History Alcoholic peripheral neuropathy Chronic post-traumatic stress disorder (PTSD) H. pylori infection History of colon polyps Hx of malignant carcinoid tumor of stomach Insomnia Psychiatric care Sleep apnea Umbilical hernia Surgical History History of ankle surgery left ankle-skin graft History of carpal tunnel release left History of colonoscopy Hx of appendectomy Hx of decompression of ulnar nerve left elbow and wrist Hx of umbilical hernia repair 08/12/21 Dr. Cadet Family History Mother Cancer Father Cancer Brother Cancer Social History Smoking and tobacco status: current every day smoker cigarettes Packs smoked per day: 2 Alcohol intake: current Alcohol intake frequency: holidays/special occasions only Data Anesthesia Cardiac Studies: No Data to Display
[2023-02-01] MEDS: ceFAZolin 2,000 MG in sodium chloride 0.9% (plus) 50 ML 100 MG IV (09:00)
[2023-02-01] MEDS: lidocaine-epi 2% 20 mL INJ INJECTION (09:18)
--- NOTE | 2023-02-01 09:41 | P.OP_ITS ---
Operative Report Date of procedure: February 01, 2023 Pre-op diagnosis: Right upper quadrant syndrome Post-op diagnosis: same Procedure done: Laparoscopic cholecystectomy Specimens removed/disposition: Gallbladder Surgeon: Dr. Kendrick Mcnulty DO Anesthesia: General Estimated blood loss (mL): 5 Complications: None apparent Brief History: This is a very pleasant 57-year-old gentleman who underwent work-up for cholecystitis, including EGD and treatment for gastritis. He continued to have right upper quadrant abdominal pain and was diagnosed with right upper quadrant syndrome. Laparoscopic cholecystectomy was indicated. The risk and benefits were explained and documented. Procedure: Patient was wheeled into the operative room and placed on the OR table in a supine position. Abdomen was inspected prepped and draped in usual sterile fashion. Time-out was performed and all present were in agreement. A 15 blade scalp was used to make a stab incision in the left upper quadrant and intra- abdominal insufflation was achieved using a Veress needle. After localizing the tissue incisions were made and a 5 millimeter trocar was placed into the umbilicus as well as 2 in the right upper quadrant. A 12 millimeter trocar was placed in the epigastrium. Gallbladder was grasped and elevated. The triangle of Calot was carefully dissected using blunt dissection and electrocautery until the triangle of Calot clearly identified. The cystic duct was clipped proximally and double clipped distally. The duct was then ligated proximally. The cystic artery was doubly clipped and ligated. The gallbladder was then removed from the liver bed using electrocautery. The gallbladder was removed from the abdomen using an Endo-Catch bag through the epigastric incision. The liver bed was inspected and no bleeding was seen. The abdomen was irrigated and suctioned. All ports removed. Skin was washed and dried. Incisions were closed with 4-0 Monocryl in a subcuticular interrupted fashion. Skin glue was applied. Patient tolerated the procedure well.
[2023-02-01] MEDS: fentaNYL 50 mcg/mL INJ 2mL IVP (10:30)
[2023-02-01] MEDS: HYDROcodone-acetaminophen 10-325 mg Tablet 1 TAB PO (10:59)
--- NOTE | 2023-02-01 16:54 | ANE.PACU2 ---
Inpatient post-anesthesia follow up: Airway intact: Yes Vital signs: Temperature 98.6 F Pulse Rate 84 Respiratory Rate 17 Blood Pressure 124/67 Pulse Oximetry 90 Oxygen Delivery Me thod Room Air Oxygen Flow Rate 5 Fraction of Inspir ed Oxygen Hydration adequate: Yes Nausea and vomiting: No Pain level: 3 Mental status: Baseline
== END 2023-02-01 12:07 | disposition home or self-care (01) ==
PROVIDERS: PCP Family Medicine; Visit Provider Surgery
PROC: 0FT44ZZ Resection of Gallbladder, Percutaneous Endoscopic Approach (ICD-10-PCS; CPT 47562; principal; 2023-02-01 08:05)
DX: K81.1 Chronic cholecystitis (principal); J44.9 Chronic obstructive pulmonary disease, unspecified; G47.30 Sleep apnea, unspecified; K21.9 Gastro-esophageal reflux disease without esophagitis; E66.01 Morbid (severe) obesity due to excess calories; Z68.39 Body mass index [BMI] 39.0-39.9, adult; F17.210 Nicotine dependence, cigarettes, uncomplicated; Z79.899 Other long term (current) drug therapy
CPT/HCPCS: 47562; 88304; J0690; J1100; J2405; J2704; J3010; J3490; J7030

== ENCOUNTER → 2023-05-25 10:37 | Outpatient (BNVA) | payer BC, SELFPAY | PROVIDERS: PCP Family Medicine; Visit Provider Nurse Practitioner Family | DX: R53.83 Other fatigue (principal); R03.0 Elevated blood-pressure reading, without diagnosis of hypertension; F41.1 Generalized anxiety disorder; R53.82 Chronic fatigue, unspecified | CPT/HCPCS: 80053; 80061; 83735; 84403; 84443; 85025 ==

== ENCOUNTER 2023-05-26 08:15 | Day surgery (SDC) | payer BC, MEDICAID, SELFPAY ==
[2023-05-26] VITALS (13 sets, daily range): BP systolic 116–208; BP diastolic 87–119; PULSE 62–79; RESP 12–16; TEMP 36.1–36.4; O2SAT 95–100; BMI 39.5
[2023-05-26] MEDS: sodium chloride 0.9% 1,000 ML 30 ML IV (08:50)
[2023-05-26] MEDS: ketorolac 30 mg/mL INJ IVP (08:51)
[2023-05-26] MEDS: acetaminophen 1,000 MG/100 ML PIGGYBACK 400 MG IV (08:51)
--- NOTE | 2023-05-26 09:36 | W.PM.OPSFHP ---
Same Day Surgery H&P Indication for Procedure/HPI DATE OF PROCEDURE: May 26, 2023 CHIEF COMPLAINT/INDICATIONFOR SURGICAL PROCEDURE: Left knee pain PREOP DIAGNOSIS: Left knee torn cartilage PLANNED PROCEDURE: Operation Date: 05/26/23 09:45 Proposed Procedures p Knee Arthroscopy: LEFT KNEE DIAGNOSTIC AND SURGICAL ARTHROSCOPY(Left) - David Bess DO Medications/Allergies* Allergies/Adverse Reactions Allergy/AdvReac Type Severity Reaction Status Date / Time No Known Allergies Allergy Verified 05/26/23 08:44 Current Medications: Generic Name Dose Route Start Last Admin Trade Name Freq PRN Reason Stop Dose Admin Sodium Chloride 1,000 mls @ 30 mls/hr 05/26/23 08:30 05/26/23 08:50 Sodium Chloride 0.9% IV 05/27/23 08:29 30 mls/hr .Q24H MAHENDRA Administration Pertinent History/Comorbid Conditions* Medical History (Updated 05/25/23 @ 13:40 by Noemy Guerrero NP) 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 pylori infection Insomnia Sleep apnea History of colon polyps Umbilical hernia Surgical History (Updated 02/16/23 @ 13:10 by Kendrick Mcnulty DO) Hx of cholecystectomy Hx of appendectomy History of ankle surgery left ankle-skin graft Hx of decompression of ulnar nerve left elbow and wrist History of colonoscopy History of carpal tunnel release left Hx of umbilical hernia repair 08/12/21 Dr. Cadet Family History (Updated 05/11/22 @ 09:52 by Tiffanie Cartwright LPN) Cancer Mother Father Brother Social History Smoking and tobacco/nicotine status: current every day tobacco/nicotine user cigarettes Packs smoked per day: 1.5 Alcohol intake: current Alcohol intake frequency: holidays/special occasions only Pertinent Exam Findings alert, oriented x 3, operative site marked and procedure specific exam findings Left knee pain mild effusion, increased pain on knee range of motion. Gross motor and sensory intact left lower extremity distally. Recommendations Surgery/Procedure today Other Plans: Plan to proceed with left knee diagnostic and surgical arthroscopy today. Coding Level of Care Code Acute Code for [facility] Fwd
--- NOTE | 2023-05-26 10:06 | P.ANESASSM_ITS ---
Pre-Anesthetic Assessment Height/Weight: Height 1.68 m Weight 111.13 kg Temp Pulse Resp BP Pulse Ox O2 Del Method 97.6 F 79 16 161/98 97 Room Air 05/26/23 08:30 05/26/23 08:30 05/26/23 08:30 05/26/23 08:30 05/26/23 08:30 05/26/23 08:30 Preop Diagnosis: Left knee torn cartilage Operation Date: 05/26/23 09:45 Proposed Procedures p Knee Arthroscopy: LEFT KNEE DIAGNOSTIC AND SURGICAL ARTHROSCOPY(Left) - David Bess, Familial anesthetic complications: none Was Beta Esteban taken within 24 hours: N/A Was Clonidine taken within 24 hours: N/A Last intake: Intake Last Liquid Date 05/26/23 Last Liquid Time 03:00 Last Solid Date 05/25/23 Last Solid Time 18:00 Social Alcohol and Tobacco Exam alert, oriented x 3 and regular rate & rhythm Airway Submandibular: within normal limits Cervical ROM: within normal limits Mallampati: Class II Dentition: false Pulmonary Chronic Obstructive Pulmonary Disease and Sleep Apnea GI Gastroesophageal Reflux Disease Metabolic Morbid Obesity [facility] [place] Osteoarthritis/DJD Neuropsych Anxiety, Depression and Neuropathy Anesthetic Plan ASA status: 3 Anesthesia: General and Regional (specify below) (adductor nerve blk) Medications/Allergies Home Medications Medication Instructions Recorded Confirmed Last Taken Type ropinirole 4 mg tablet 4 mg PO DAILY #90 tabs 09/24/22 05/26/23 05/25/23 Rx bupropion HCl 150 mg 24 hr tablet, 150 mg PO QAM #30 tabs 03/26/23 05/26/23 05/25/23 Rx extended release (Wellbutrin XL) duloxetine 60 mg capsule,delayed 120 mg (2 x 60 mg) PO DAILY #60 03/26/23 05/26/23 05/25/23 Rx release caps Allergies Allergy/AdvReac Type Severity Reaction Status Date / Time No Known Allergies Allergy Verified 05/26/23 08:44 Current Medications Generic Name Dose Route Start Last Admin Trade Name Freq PRN Reason Stop Dose Admin Sodium Chloride 1,000 mls @ 30 mls/hr 05/26/23 08:30 05/26/23 08:50 Sodium Chloride 0.9% IV 05/27/23 08:29 30 mls/hr .Q24H MAHENDRA Administration PFSH Anesthesia Medical History 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 pylori infection Insomnia Sleep apnea History of colon polyps Umbilical hernia Surgical History History of ankle surgery left ankle-skin graft History of carpal tunnel release left History of colonoscopy Hx of appendectomy Hx of cholecystectomy Hx of decompression of ulnar nerve left elbow and wrist Hx of umbilical hernia repair 08/12/21 Dr. Cadet Family History Mother Cancer Father Cancer Brother Cancer Social History Smoking and tobacco/nicotine status: current every day tobacco/nicotine user cigarettes Packs smoked per day: 1.5 Alcohol intake: current Alcohol intake frequency: holidays/special occasions only Data Anesthesia Cardiac Studies: No Data to Display
[2023-05-26] MEDS: ceFAZolin 2,000 MG in sodium chloride 0.9% (plus) 50 ML 100 MG IV (10:35)
[2023-05-26] MEDS: lidocaine-epi 2% 20 mL INJ 40 ML INJECTION (10:52)
--- NOTE | 2023-05-26 11:12 | PM.OP ---
Operative Report Date of procedure: May 26, 2023 Surgeon: David Bess DO Forensic Toxicologist: Jaron Bess PA-C: PA was necessary for assistance in this case with leg positioning, assistance with instrumentation as well as wound closure and dressing application. Procedure: Preoperative diagnosis: Left knee medial meniscus tear Post-op diagnosis: Left?knee?medial meniscus tear Left?knee?extensive synovitis Left?knee?Medial. Patellofemoral chondromalacia Procedure done: Left?knee?diagnostic and surgical arthroscopy partial medial meniscectomy Left?knee?diagnostic and surgical arthroscopy with extensive synovectomy of the medial lateral and patellofemoral compartments Left?knee?diagnostic and surgical arthroscopy with medial and patellofemoral compartment chondroplasty Surgeon: David Bess DO Estimated blood loss: 3mL Tourniquet: No tourniquet was used IV fluids: See anesthesia record Complications: None Findings: See operative report narrative Condition: stable Disposition: same day Brief History: Patient is a 58-year-old male with Left?knee?pain.? Patient has failed conservative treatment who has been worked up for Left??knee?pain in the outpatient setting. MRI findings consistent with tear of the medial meniscus. talked in the office about treatment options patient would like to proceed with a Left?knee?diagnostic and surgical arthroscopy with partial medial meniscectomy.? Patient understand the ins and outs of the procedure the risk benefits complication alternatives to treatment options.? Understanding risk of surgery they agree to proceed with surgical intervention.? Patient understand this may not provide patient with complete symptomatic relief of? pain as patient does have some underlying arthritis.? Understanding this and patient agree to proceed with surgical intervention all questions answered. Procedure: Patient seen and evaluated in the preoperative holding area.? Consent was reviewed and signed with patient.? Correct extremity was then marked.? Patient seen evaluated Anesthesia Department once cleared for surgery patient was taken back to the operative suite.? Patient was transported onto the OR table in supine position.? All bony prominences well-padded patient was appropriate secured to the bed.? Once appropriately anesthetized a nonsterile tourniquet was applied to the Left thigh.? The Left lower extremity was then prepped and draped in standard orthopedic fashion.? Final timeout performed.? Patient received appropriate preoperative antibiotics. Patient received local anesthetic of lidocaine with epinephrine into the joint as well as around the portal sites.? No tourniquet was inflated A standard 2 portal vertical incision diagnostic and surgical arthroscopy of the Left?knee?was performed in standard fashion.? Small stab incision made in the inferolateral portal introduced trocar and arthroscope into the suprapatellar pouch.? Suprapatellar pouch was subsequently visualized and found to have significant synovitis but no loose bodies.? Patient had noticeable significant inflamed infrapatellar fat pad and thickening hypertrophic within the patellofemoral compartment.? ?The medial gutter was free of loose bodies I then introduced the arthroscope into the medial compartment.? Within the medial compartment I then established my inferior medial working portal utilizing spinal needle outside in technique.? Once established I then visualized our articular cartilage of the medial compartment with a valgus stress.? Patient was found to have grade 3 chondromalacia throughout the medial compartment.? Next I inspected the meniscus.? With an arthroscopic probe was utilized to visual? all aspects of the meniscus.? Meniscal root was found to be intact.? Meniscus was found to be torn at the body to posterior horn junction.? I then subsequently introduced a basket forceps as well as arthroscopic shaver to perform a partial medial meniscectomy to stable meniscal tissue and then utilized a thermal wand to anneal the edges.? Next, I then performed a synovectomy of the medial compartment.? Given patient's chondromalacia there was areas of unstable articular cartilage and I subsequently performed a chondroplasty with arthroscopic shaver and thermal wand.? This completed medial compartment work. Next a introduced the arthroscope to the intercondylar notch.? PCL and ACL were intact. patient had significant thickening of the infrapatellar fat pad spanning into the medial and lateral compartments.? I then performed an extensive synovectomy with the arthroscopic shaver of the patellofemoral medial and lateral compartments as well as the intercondylar notch. Advance the?scope?into the retrocruciate space and no loose bodies were found. Next I introduced the arthroscope into the lateral compartment the lateral compartment was found to have grade 2 chondromalacia.? Lateral meniscus was found to be intact.? The root was intact.? Given the grade II chondromalacia there is no unstable cartilage pieces to perform chondroplasty.? This completed my work of the lateral compartment and then performed a synovectomy of the lateral compartment.? Next of the arthroscope was placed into the lateral gutter and this was free of loose bodies.? Finally I reintroduced the arthroscope into the patellofemoral compartment.? The patellofemoral was found to have grade 2-3 chondromalacia of the patellofemoral compartment.? I subsequently utilized thermal wand as well as arthroscopic shaver to perform abrasion chondroplasty patellofemoral compartment as well to stable articular tissue. At this point I utilized arthroscopic shaver as well as thermal wand to perform extensive synovectomy of the patellofemoral compartment. This completed my work of the patellofemoral space.? I then switch my portal sites to the medial working portal.? Completed the rest of synovectomy and the rest of my examination arthroscopy was normal. All fluid was suctioned from the joint.? ?All instruments were withdrawn.? Portal sites were closed with interrupted nylon suture.? portal sites were then covered with with Xeroform 4 x 4's ABD Curlex and Raúl wrap.? Patient was then subsequently awakened from anesthesia and taken to PACU in stable condition. Disposition: Patient taken to PACU in stable condition recovering well.? Will receive appropriate discharge structure as well as pain medication postoperatively as well as? DVT prophylaxis.we will have patient follow-up with us in the office in 2 weeks.? We will weightbearing as tolerated to the Left lower extremity.? Patient understands and agrees with current plan.? All questions answered.
--- NOTE | 2023-05-26 11:30 | P.BOP_ITS ---
Date of Procedure: [May 26, 2023] Surgeon: [Dr. Bess DO] Anesthesiology Physician(s): [Jaron Bess physician associate] Procedure(s) performed: [Left knee diagnostic and surgical arthroscopy with partial medial meniscectomy and medial patellar femoral compartment chondroplasty] Findings of the procedure(s): [Left knee medial meniscus tear and chondromalacia] Estimated blood loss: [2 mL] Specimen(s) removed: [N/A] Post-operative diagnosis: [Left knee medial meniscus tear and chondromalacia]
--- NOTE | 2023-05-26 11:33 | PM.PACU ---
PACU note Narrative: Patient is a 57-year-old male just underwent a left knee surgical arthroscopy. Pt transferred to PACU in stable condition. Dressing is dry. pt is awake and alert. pt can wiggle toes and plantarflex and dorsiflex foot. pt able to perform straight leg raise, Femoral nerve intact. Distal pulses are palpable toes are warm and well-perfused. Cap refill is normal and under 2 seconds. Sensation to foot is intact. Pain is controlled. Exam: awake Disposition: discharged
--- NOTE | 2023-05-26 12:04 | ANES.PROC ---
Anesthesia Procedures Procedure/Date: 05/26/23 Nerve Block ^: Nerve Block 1: Main Anesthesia: general anesthesia Time Out Performed: Yes Consent: requested by attending/covering physician, from patient, risks and benefits reviewed and patient agrees to proceed Nerve block location: adductor canal (left) Anesthesia monitors applied: pulse oximetry, EKG, BP cuff and oxygen Nerve block position: supine Anesthetic Used: ropivicaine 0.5% Amount of anesthesia used (mL): 20 Ultrasound used to: recognize landmarks Nerve Stimulator Used?: No Interscalene/Femoral BLK: 4 stimuplex 21 g needle used for position and inplane approach Injection: neg aspiration of heme Patient Tolerated Procedure: well Complications: none
[2023-05-26] MEDS: hyDRALAzine 20 mg/mL INJ 1 mL 10 MG IVP (12:10)
--- NOTE | 2023-05-26 16:59 | ANE.PACU2 ---
Inpatient post-anesthesia follow up: Airway intact: Yes Vital signs: Temperature 97.0 F Pulse Rate 69 Respiratory Rate 16 Blood Pressure 146/92 Pulse Oximetry 100 Oxygen Delivery Me thod Room Air Oxygen Flow Rate Fraction of Inspir ed Oxygen Hydration adequate: Yes Nausea and vomiting: No Pain level: 2 Mental status: Baseline
== END 2023-05-26 12:50 | disposition home or self-care (01) ==
PROVIDERS: PCP Family Medicine; Visit Provider Student in an Organized Health Care Education/Training Program
PROC: (CPT 29870; principal; 2023-05-26 09:35)
DX: S83.242A Other tear of medial meniscus, current injury, left knee, initial encounter (principal); X58.XXXA Exposure to other specified factors, initial encounter; M65.9 Synovitis and tenosynovitis, unspecified; M22.42 Chondromalacia patellae, left knee; J44.9 Chronic obstructive pulmonary disease, unspecified; G47.30 Sleep apnea, unspecified; K21.9 Gastro-esophageal reflux disease without esophagitis; E66.01 Morbid (severe) obesity due to excess calories; Z68.39 Body mass index [BMI] 39.0-39.9, adult; F17.210 Nicotine dependence, cigarettes, uncomplicated
CPT/HCPCS: 29876; 29881; J0131; J0360; J0690; J1100; J1885; J2405; J2704; J2795; J3010; J7030

== ENCOUNTER → 2023-06-08 11:26 | Outpatient (BNVA) | payer BC, SELFPAY | PROVIDERS: PCP Family Medicine; Visit Provider Nurse Practitioner Family | DX: R73.09 Other abnormal glucose (principal) | CPT/HCPCS: 83036 ==

== ENCOUNTER → 2023-11-18 15:47 | Outpatient (BNVA) | payer BC, SELFPAY | PROVIDERS: PCP Family Medicine; Visit Provider Student in an Organized Health Care Education/Training Program | DX: Z98.890 Other specified postprocedural states (principal); M17.12 Unilateral primary osteoarthritis, left knee | CPT/HCPCS: 73560; 73565 ==

== ENCOUNTER → 2024-04-20 16:13 | Outpatient (BNVA) | payer BC, SELFPAY | PROVIDERS: PCP Nurse Practitioner Family; Visit Provider Physician Assistant | DX: M25.512 Pain in left shoulder (principal); M75.42 Impingement syndrome of left shoulder | CPT/HCPCS: 73030 ==

== ENCOUNTER → 2024-07-31 13:30 | Outpatient (BNVA) | payer BC, SELFPAY | PROVIDERS: PCP Nurse Practitioner Family; Visit Provider Nurse Practitioner Family | DX: R63.0 Anorexia (principal); R53.1 Weakness | CPT/HCPCS: 80053; 85025 ==

== ENCOUNTER → 2024-08-02 15:58 | Outpatient (BNVA) | payer BC, SELFPAY | PROVIDERS: PCP Nurse Practitioner Family; Visit Provider Nurse Practitioner Family | DX: R63.0 Anorexia (principal); R53.1 Weakness | CPT/HCPCS: 87338 ==

== ENCOUNTER 2024-08-04 14:16 | Outpatient (CLI) | payer BC, MEDICAID, SELFPAY ==
--- NOTE | 2024-08-04 16:00 | MR_ITS ---
WS: [id number] MRI LEFT SHOULDER HISTORY: Rotator cuff impingement COMPARISON: LEFT shoulder radiograph 04/20/2024 TECHNIQUE: Multiplanar sequences of the shoulder joint are submitted. Mild AC joint arthritis. Small osteophytes encroaching upon the myotendinous portion of the supraspinatus. No significant amount of fluid in the subacromial or subdeltoid bursa. Mild subacromial impingement. No os acromion. Normal biceps tendon. Slightly high riding humeral head. No acute fracture or marrow edema. Distal insertion site tear of the supraspinatus tendon. Tear extends interstitial along the tendon. There is no full-thickness tear. The bursal surface of the tendon is intact. There is mild supraspinatus atrophy. Subscapularis tendon is intact. Very slight deviation of the tendon due to osteophyte from the lesser tuberosity. Infraspinatus tendon is predominantly intact. There may be some overlapping of the insertion site tear between the distal supraspinatus and infraspinatus tendons. There is no retraction of either tendon. Increased intermediate signal in the superior labrum. Intrasubstance degeneration with an associated tear in the superior labrum. The remaining labrum is intact. MR/MR shoulder LT wo con* [id number] IMPRESSION: 1. Supraspinatus insertion site tear with interstitial extension of the tear. The bursal surface of the tendon is intact. 2. Where the distal supraspinatus tendon overlaps with the infraspinatus tendo n there is a small insertion site tear. This is contiguous with the larger tear in the supraspinatus tendon. 3. Abnormal signal superior labrum. Focal tear and intrasubstance degeneration . 4. Mild atrophy of the supraspinatus muscle.
== END 2024-08-04 14:17 | disposition home or self-care (01) ==
LOC: RAD 14:17
PROVIDERS: PCP Nurse Practitioner Family; Visit Provider Physician Assistant
DX: M75.42 Impingement syndrome of left shoulder (principal); M75.102 Unspecified rotator cuff tear or rupture of left shoulder, not specified as traumatic; R93.6 Abnormal findings on diagnostic imaging of limbs; M62.512 Muscle wasting and atrophy, not elsewhere classified, left shoulder; M13.812 Other specified arthritis, left shoulder; M25.712 Osteophyte, left shoulder
CPT/HCPCS: 73221

== ENCOUNTER → 2024-09-19 13:00 | Outpatient (BNVA) | payer BC, SELFPAY | PROVIDERS: PCP Nurse Practitioner Family; Visit Provider Nurse Practitioner Family | DX: R53.82 Chronic fatigue, unspecified (principal); R53.83 Other fatigue; R53.1 Weakness | CPT/HCPCS: 82728; 83550; 85025 ==

== ENCOUNTER → 2024-09-20 | Outpatient (BNVA) | payer BC, SELFPAY | PROVIDERS: PCP Nurse Practitioner Family; Visit Provider Nurse Practitioner Family | DX: R53.82 Chronic fatigue, unspecified (principal); R53.83 Other fatigue; R53.1 Weakness | CPT/HCPCS: 85025 ==

== ENCOUNTER → 2024-09-26 10:50 | Outpatient (BNVA) | payer BC, SELFPAY | PROVIDERS: PCP Nurse Practitioner Family; Visit Provider Nurse Practitioner Family | DX: R79.89 Other specified abnormal findings of blood chemistry (principal); Z83.49 Family history of other endocrine, nutritional and metabolic diseases | CPT/HCPCS: 80053; 82728; 83010; 83550; 85025 ==

== ENCOUNTER 2024-09-28 08:21 | Day surgery (SDC) | payer BC, MEDICAID, SELFPAY ==
[2024-09-28] VITALS (11 sets, daily range): BP systolic 111–153; BP diastolic 82–110; PULSE 62–100; RESP 14–19; TEMP 36.1–36.5; O2SAT 92–99; BMI 33.7
[2024-09-28] MEDS: sodium chloride 0.9% 1,000 ML 30 ML IV (09:10)
--- NOTE | 2024-09-28 09:17 | ANES.PREANE2 ---
Pre-Anesthetic Assessment Height/Weight: Height 5 ft 6 in Weight 209 lb Temp Pulse Resp BP Pulse Ox O2 Del Method 97.2 F L 69 16 127/93 96 Room Air 09/28/24 08:54 09/28/24 08:54 09/28/24 08:54 09/28/24 08:54 09/28/24 08:54 09/28/24 08:55 Preop Diagnosis: Rotator cuff tear Operation Date: 09/28/24 09:50 Proposed Procedures p Left Shoulder Diagnostic and Surgical Arthroscopy(Left) - David Shahriar, DO s Subacromial Decompression(Left) - David Lapeer, DO s Rotator Cuff Debridement versus repair(Left) - David Shahriar, DO s acromioclavicular Joint Resection(Left) - David Lapeer, DO s POSSIBLE Bicep Tenodesis(Left) - David Shahriar, DO Was Beta Esteban taken within 24 hours: N/A Was Clonidine taken within 24 hours: N/A Last intake: Intake Last Liquid Date 09/27/24 Last Liquid Time 23:30 Last Solid Date 09/27/24 Last Solid Time 20:00 Social Tobacco and No alcohol Exam alert, oriented x 3 and regular rate & rhythm Decreased breath sounds bilaterally Airway Submandibular: within normal limits Cervical ROM: within normal limits Mallampati: Class I Comments: Comments: Edentulous Anesthetic Plan ASA status: 3 Anesthesia: General and Regional (specify below) Other: No prior issues with anesthesia NPO since yesterday evening Current smoker History of GERD PTSD and MDD ELOY, no CPAP Labs reviewed from 09/26/2024 and acceptable for procedure Plan for general anesthesia with peripheral nerve block Medications/Allergies Home Medications ?Medication ?Instructions ?Recorded ?Confirmed ?Last Taken ?Type duloxetine 60 mg capsule,delayed 120 mg (2 x 60 mg) PO DAILY #60 09/13/24 09/27/24 09/27/24 Rx release caps quetiapine 100 mg tablet (Seroquel) 100 mg PO DAILY #30 tabs 09/13/24 09/27/24 09/26/24 Rx Allergies Allergy/AdvReac Type Severity Reaction Status Date / Time No Known Allergies Allergy Verified 09/27/24 08:57 [facility] Anesthesia Medical History 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 pylori infection Insomnia Sleep apnea History of colon polyps Umbilical hernia Surgical History Hx of cholecystectomy Hx of appendectomy History of ankle surgery left ankle-skin graft Hx of decompression of ulnar nerve left elbow and wrist History of colonoscopy History of carpal tunnel release left Hx of umbilical hernia repair 08/12/21 Dr. Cadet Family History Mother Cancer Father Cancer Brother Cancer Social History Smoking and tobacco/nicotine status: current every day tobacco/nicotine user cigarettes Packs smoked per day: 1.5 Alcohol intake: current Alcohol intake frequency: holidays/special occasions only Data Anesthesia Cardiac Studies: No Data to Display
[2024-09-28] MEDS: acetaminophen 1,000 MG/100 ML PIGGYBACK 400 MG IV (09:20)
[2024-09-28] MEDS: scopolamine 1 mg PATCH 1 PATCH TRANSDERMA (09:27)
[2024-09-28] MEDS: ketorolac 30 mg/mL INJ IVP (09:33)
--- NOTE | 2024-09-28 10:26 | ANES.PROC ---
Anesthesia Procedures Procedure/Date: 09/28/24 Nerve Block ^: Nerve Block 1: Main Anesthesia: other (100mcg fentanyl) Time Out Performed: Yes Consent: requested by attending/covering physician Nerve block location: supraclavicular Anesthesia monitors applied: pulse oximetry, EKG, BP cuff and oxygen Nerve block position: supine Anesthetic Used: ropivicaine 0.5% Amount of anesthesia used (mL): 30 Ultrasound used to: recognize landmarks Nerve Stimulator Used?: Yes Interscalene/Femoral BLK: other needle (pjunk) and visualize local anesthetic spread Injection: neg aspiration of heme Patient Tolerated Procedure: well Complications: none Additional Comments: decadron 4mg added to block
--- NOTE | 2024-09-28 11:02 | W.PM.OPSUD ---
Surgery/Procedure H&P Update DATE OF PROCEDURE: September 28, 2024 DATE H&P PERFORMED: 09/06/24 H&P UPDATE INFORMATION: I have reviewed H&P completed within last 30 days, I have examined patient prior to procedure and No changes to prior documentation PREOP DIAGNOSIS: Left shoulder rotator cuff tear, subacromial impingement, biceps tendinitis PRIMARY INDICATION FOR PROCEDURE: Left shoulder rotator cuff tear, subacromial impingement, biceps tendinitis, AC joint arthritis PLANNED PROCEDURE: Operation Date: 09/28/24 09:50 Proposed Procedures p Left Shoulder Diagnostic and Surgical Arthroscopy(Left) - DO luisito Macias Subacromial Decompression(Left) - DO luisito Macias Rotator Cuff Debridement versus repair(Left) - DO luisito Macias acromioclavicular Joint Resection(Left) - DO luisito Macias POSSIBLE Bicep Tenodesis(Left) - David Bess DO
[2024-09-28] MEDS: ceFAZolin 2,000 MG in sodium chloride 0.9% (plus) 50 ML 100 MG IV (11:08)
[2024-09-28] MEDS: EPINEPHrine 1 mg/mL INJ 2 MG XX (12:07)
--- NOTE | 2024-09-28 12:39 | P.BOP_ITS ---
Date of Procedure:09/28/24 Surgeon: David Bess DO [facility] Operator(s): Jaron Bess PA-C Procedure(s) performed: Left shoulder diagnostic and surgical arthroscopy with rotator cuff repair (small) Left shoulder diagnostic and surgical arthroscopy with biceps tenodesis Left shoulder diagnostic and surgical arthroscopy with labral debridement Left shoulder diagnostic and surgical arthroscopy with subacromial decompression (acromioplasty/bursectomy) Left shoulder diagnostic and surgical arthroscopy with AC joint resection (distal clavicle excision) Findings of the procedure(s): Patient was found to have small rotator cuff tear severe superior labral tearing and biceps tendinitis underwent bicep tenodesis the rest of procedure as planned without issues or complications taken back to PACU stable condition. Estimated blood loss: 5 mL Specimen(s) removed: None Post-operative diagnosis: Left shoulder rotator cuff tear, circumferential labral tearing, superior labral tear with biceps tendinitis/tearing, AC joint arthritis, subacromial impingement
--- NOTE | 2024-09-28 12:43 | P.OP_ITS ---
Operative Report Date of procedure: September 28, 2024 Surgeon: David Bess DO Reinforcing Steel Machine Operator: Jaron Bess PA-C: PA was necessary for assistance in this case with shoulder positioning to execute the procedure, assistance with instrumentation, as well as implant fixation when necessary, assist with wound closure and dressing application. Procedure: Preoperative diagnosis: Left shoulder rotator cuff tear, subacromial impingement, biceps tendinitis, AC joint arthritis Post-op diagnosis:? Left shoulder rotator cuff tear, circumferential labral tearing, superior labral tear with biceps tendinitis/tearing, AC joint arthritis, subacromial impingement Procedure done: Left shoulder diagnostic and surgical arthroscopy with rotator cuff repair (small) Left shoulder diagnostic and surgical arthroscopy with biceps tenodesis Left shoulder diagnostic and surgical arthroscopy with labral debridement Left shoulder diagnostic and surgical arthroscopy with subacromial decompression (acromioplasty/bursectomy) Left shoulder diagnostic and surgical arthroscopy with AC joint resection (distal clavicle excision) Surgeon: David Bess DO Estimated blood loss: 5 mL IV fluids: 900 mL Implants: Arthrex 4.75 swivel lock Arthrex scorpion and suture tape Arthrex bicep tenodesis 4.75 loop and tack tenodesis kit Complications: None Condition: stable Disposition: same day Brief History: Patient been seen and worked up in the outpatient setting for?Left?shoulder pain.? Pt had an MRI which showed findings below.? Patient's failed conservative treatment and has weakness.? We talked about treatment options far as nonoperative and operative intervention..? We talked about risk benefits complication alternatives surgical nonsurgical treatment options.? Understanding risk of surgery pt agrees to proceed with surgical intervention.? All questions have been answered at this time.? Patient elects proceed with surgery and consent obtained in preoperative holding area Left Shoulder Diagnostic and Surgical Arthroscopy, Subacromial Decompression, Rotator Cuff Debridement versus repair, Acromioclavicular Joint Resection, Possible Biceps Tenodesis MR/MR shoulder LT wo con* [id number] IMPRESSION: 1. Supraspinatus insertion site tear with interstitial extension of the tear. The bursal surface of the tendon is intact. 2. Where the distal supraspinatus tendon overlaps with the infraspinatus tendon there is a small insertion site tear. This is contiguous with the larger tear in the supraspinatus tendon. 3. Abnormal signal superior labrum. Focal tear and intrasubstance degeneration. 4. Mild atrophy of the supraspinatus muscle. Procedure: Patient seen evaluated in the preoperative holding area.? Consent reviewed and signed with patient.? Once again reviewed patient's MRI results as well as? planned surgical intervention.? Correct extremity marked.? Patient seen evaluated by anesthesia department received regional anesthesia.? Once ready for surgery was taken back to the operative suite.? Patient then subsequently underwent anesthesia per the anesthesia department was transported onto the OR table.? Patient was then placed into a lateral decubitus position with a beanbag and was appropriately secured to the bed.? All bony prominences well-padded.? Patient then had the?Left?upper extremity was then prepped and draped in standard orthopedic fashion.? Patient received appropriate preoperative antibiotics.? Final timeout performed. The?Left?upper extremity was then held in hanging from traction utilizing sterile technique.? Next started with standard diagnostic and surgical arthroscopy with posterior portal position introduced arthroscope into the glenohumeral joint.? Visualized the glenohumeral joint I then introduced a spinal needle within the rotator cuff interval to confirm appropriate anterior portal placement.? Once this was confirmed I then made my small incision and then introduced my arthroscopic shaver into the glenohumeral joint.? After flushing the joint fluid, was clearly evident patient had biceps tendon tearing as well as Superior labral tear. Patient had appreciable unstable biceps anchor most pronounced in the superior labrum. Given there appears to be healthy intra-articular tendon plan was for an intra-articular biceps tenodesis at the superior portion as it enters the intertubercular groove. Thermal wand introduced into the rotator interval. I then release of the rotator interval to have appropriate visualization and the ability to perform biceps tenodesis. At this point I established a purple passport cannula which was introduced. Next I performed an Arthrex loop and tap biceps tenodesis. Passer was then made around the tendon luggage tag stitch around and then thru the tendon per Arthrex protocol I then utilized a thermal wand to release the biceps tendon at the anchor to perform with tenotomy. I then loaded with suture onto an Arthrex 4.75 swivel lock suture anchor. A punch was then placed in appropriate position at the entry point into the intertubercular groove just superior to the subscapularis tendon. Punch was then introduced to the appropriate depth. The suture loaded on the swivel lock was then advanced held under appropriate tension and shoulder lock anchor was then advanced and had excellent fixation. Excess suture was then cut biceps tenodesis was complete. I then utilized a thermal wand to seal the edges of the superior labrum. Next I evaluated the subscapularis tendon which was intact and no evidence of tear. ?Next there was significant labral tearing at biceps anchor and circumferential.? ? I then subsequently utilized a a arthroscopic shaver and thermal wand to perform a labral debridement.? This point time I then visualized the glenohumeral joint.? The glenohumeral joint was found to have grade 1-2? chondromalacia throughout.? Axillary pouch was free of loose bodies from viewing the posterior portal.? Next a visualized the rotator cuff superiorly and there was found to be a small undersurface tearing of the supraspinatus tendon.? I utilized a spinal needle to rachel this location.? ?This completed my work within the glenohumeral joint all fluid was suctioned free of the joint.? ?Next I reintroduced the arthroscope posteriorly.? And went to the subacromial space.? I established my lateral working portal at the site of which my spinal needle was marking of the rotator cuff tear.? Thermal wand was then introduced laterally and then I subsequently performed extensive bursectomy of the subacromial space.? Patient had a large anterior bone spur.? At this point time I proceeded with my AC joint resection thermal wand was used and track to the anterior edge of the acromion and then tracked all the way to the AC joint.? Once identified the AC joint this was very arthritic in nature.? Thermal wand was placed anteriorly to establish appropriate plane for AC joint resection.? Once appropriate margins and anterior inferior and anterior capsule was released I then introduced arthroscopic shaver and a bur and performed AC joint resection of both the acromion to cope plane at the AC joint and a distal clavicle resection was then performed totaling 1 cm in size and was confirmed.? This completed my AC joint resection and I then introduced the arthroscopic shaver laterally while continuing to view posteriorly.? I then performed an acromioplasty to complete my subacromial decompression prior to fixing the rotator cuff tear.? Next the arthroscopic shaver was then used previous spinal needle spot that is marked the small hole in the rotator cuff this was consistent with a small full- thickness tear.? Given the small size this did not need a medial and lateral row configuration as result my plan was for a horizontal mattress stitch with a single lateral row anchor.? As result I loaded and Arthrex scorpion with fiber tape and subsequently.? A horizontal mattress purchase appropriately spaced to the small tear of the supraspinatus tendon.? At this point in time and then introduced a shaver to debride the rotator cuff footprint and decorticate the footprint in preparation for repair, next I marked by swivel lock position.? Fiber tape was then loaded into a 4.75 swivel lock I then subsequently punched and then subsequently placement 4.75 swivel lock while maintaining appropriate tension and repair of rotator cuff and this was advanced with excellent fixation I then had a final confirmation of appropriate repair of the supraspinatus rotator cuff tendon tear.? Sutures were then cut with an arthroscopic suture cutter and subsequently evaluated the rotator cuff repair.? Repair was found to be satisfactory?shoulder was taken through range of motion and the repair moved as a unit with no evidence of loss of fixation. ?I then switched the arthroscope to the lateral portal to confirm this tension- free repair.? I took the?shoulder through range of motion and the rotator cuff repair was stable and moved as a unit. ?Next I then introduced the arthroscopic shaver posteriorly to complete my suba cromial decompression appropriate complaining all the way up to the lateral edge of the acromion.? This completed the surgery.? All fluid was suctioned from the?shoulder.? All instruments were removed.? The lateral incision was then closed with nylon stitches.? As well as the portal sites closed with portal nylon stitches.? Xeroform 4 x 4's ABD and tape was then applied to the?Left?shoulder and was placed into a?shoulder abduction pillow sling for rotator cuff repair.? Patient was then awakened from anesthesia and then taken back to PACU in stable condition.? Patient tolerated procedure without any issues. Disposition: Patient taken back in stable condition recovering well.? Dressings on in place clean dry and intact.? Will be nonweightbearing to the?Left?upper extremity.? Follow rotator cuff repair protocol.? Patient to follow-up with me in the office in 2 weeks.? Patient will receive appropriate discharge instruction as well as pain medication postoperatively.? All questions answer ed.? We will contact the office for any questions or concerns.
--- NOTE | 2024-09-28 14:45 | ANE.PACU2 ---
Inpatient post-anesthesia follow up: Airway intact: Yes Vital signs: Temperature 97.7 F Pulse Rate 72 Respiratory Rate 16 Blood Pressure 153/101 Pulse Oximetry 97 Oxygen Delivery Me thod Room Air Oxygen Flow Rate Fraction of Inspir ed Oxygen Hydration adequate: Yes Nausea and vomiting: No Pain level: 1 Mental status: Baseline
--- NOTE | 2024-09-28 14:59 | PM.PACU ---
PACU note Narrative: Patient is a 59-year-old male that just underwent a left shoulder diagnostic and surgical arthroscopy. Patient transferred to PACU in stable condition. Pain is well controlled. shoulder Dressing on , dry and in place. Patient's operative arm is in a shoulder immobilizer. Patient is awake and alert and able to respond to my questions accordingly. Patient's fingers are warm with good perfusion. Normal cap refill under 2 seconds. Unable to assess further range of motion in arm due to sling. Exam: awake Disposition: discharged
--- NOTE | 2024-09-28 15:03 | SUR.PREOP ---
10:15 LEFT INTERSCALENE NERVE BLOCK PERFORMED BY Dr CONLEY, USING 30ml OF 0.5% ROPIVACAINE. PT ON O2 VIA NASAL CANNULA AND ANESTHESIA ASSOCIATE SHOWING NSR. PT TOLERATED PROCEDURE WELL.
== END 2024-09-28 14:45 | disposition home or self-care (01) ==
PROVIDERS: PCP Nurse Practitioner Family; Visit Provider Student in an Organized Health Care Education/Training Program
PROC: (CPT 29805; principal; 2024-09-28 09:30)
PROC: (CPT 29826; 2024-09-28 09:30)
PROC: (CPT 29827; 2024-09-28 09:30)
PROC: 0RSH0ZZ Reposition Left Acromioclavicular Joint, Open Approach (ICD-10-PCS; CPT 29827; 2024-09-28 09:30)
PROC: (CPT 23430; 2024-09-28 09:30)
PROC: (CPT 29827; 2024-09-28 09:30)
DX: M75.102 Unspecified rotator cuff tear or rupture of left shoulder, not specified as traumatic (principal); S43.432A Superior glenoid labrum lesion of left shoulder, initial encounter; M75.42 Impingement syndrome of left shoulder; M94.212 Chondromalacia, left shoulder; M75.22 Bicipital tendinitis, left shoulder; M19.012 Primary osteoarthritis, left shoulder; K21.9 Gastro-esophageal reflux disease without esophagitis; G47.33 Obstructive sleep apnea (adult) (pediatric); F17.210 Nicotine dependence, cigarettes, uncomplicated; Z79.899 Other long term (current) drug therapy
CPT/HCPCS: 29827; 29828; 29826; 29824; C1713; J0131; J0171; J0690; J1100; J1885; J2405; J2704; J3010; J3490; J7030; J9999

== ENCOUNTER → 2024-10-30 16:00 | Outpatient (BNVA) | payer BC, SELFPAY | PROVIDERS: PCP Nurse Practitioner Family; Visit Provider Nurse Practitioner Family | DX: Z83.49 Family history of other endocrine, nutritional and metabolic diseases (principal) | CPT/HCPCS: 80053; 81256; 85025 ==

== ENCOUNTER 2024-12-05 11:46 | Oncology outpatient (recurring) (ONCR) | payer BC, MEDICAID, SELFPAY ==
[2024-11-30 11:19] LABS: Alanine Aminotransferase 24 U/L (0-41); Albumin Level 4.3 g/dL (3.5-5.2); Alkaline Phosphatase 103 U/L (40-130); Anion Gap 16.4 (5-19); Aspartate Amino Transferase 22 U/L (0-40); Blood Urea Nitrogen 8 mg/dL (6-20); C Reactive Protein 4.2 mg/L (0.0-4.9); Calcium 9.3 mg/dL (8.5-10.5); Carbon Dioxide 23 mmol/L (22-29); Chloride 104 mmol/L (98-107); Ferritin 351 ng/mL (30-400); Globulin 2.9 g/dL (1.3-4.6); Glomerular Filtration Rate 171.4 mL/min (90-130); Glucose 96 mg/dL (65-115); Iron 141 ug/dL (59-158); Lactate Dehydrogenase 186 U/L (135-225); Osmolality Calculated 286 mOsm/kg (285-295); Percent Saturation 51.6 % (20-50); Potassium 4.4 mmol/L (3.5-5.1); Sodium 139 mmol/L (136-145); Total Bilirubin 0.7 mg/dL (0.15-1.2); Total Iron Binding Capacity 273 mcg/dl; Total Protein 7.2 g/dL (6.6-8.7); Unsaturated Iron Binding 132 ug/dL (112-347)
[2024-11-30 11:23] LABS: Basophils # 0.1 10^3/uL (0.0-0.1); Basophils % 0.5 %; Eosinophils # 0.1 10^3/uL (0.0-0.8); Eosinophils % 1.3 %; Hematocrit 52.6 % (37-53); Lymphocytes # 1.8 10^3/uL (0.8-4.8); Lymphocytes % 19.6 %; Mean Corpuscular HGB Conc 33.7 g/dL (30-55); Mean Corpuscular Hemoglobin 30.7 pg (27-33); Mean Corpuscular Volume 91.3 fl (82-101); Mean Platelet Volume 10.3 fL (7.4-10.4); Monocytes # 0.5 10^3/uL (0.2-0.9); Neutrophils # 6.67 10^3/uL (1.8-7.7); Neutrophils % 73.3 %; Nucleated Red Blood Cells % 0 %; Platelet Count 158 10^3/cmm (157-399); Red Blood Count 5.76 10^6/uL (3.85-5.65); Red Cell Distribution Width 13.9 % (12.1-15.1); White Blood Count 9.12 10^3/uL (3.29-11.43)
[2024-12-10 12:45] LABS: Chromogranin A LC/MS/MS 88 ng/mL (ADULTS: <311)
[2024-12-15 18:54] LABS: 24 Hour Urine Volume 1200 mL; 5-HIAA, 24 Hour Urine 1.4 mg/24 h (< OR = 6.0)
== END 2024-12-18 23:59 | disposition home or self-care (01) ==
PROVIDERS: PCP Nurse Practitioner Family; Visit Provider Internal Medicine
DX: E83.110 Hereditary hemochromatosis; Z53.9 Procedure and treatment not carried out, unspecified reason
CPT/HCPCS: 36415; 73030; 80053; 82728; 83010; 83497; 83540; 83550; 83615; 85025; 86140; 86316

== ENCOUNTER 2024-12-26 17:02 | Emergency (ER) | payer BC, MEDICAID, SELFPAY ==
--- OUTSIDE RECORDS SUMMARY | 2024-12-26 17:05 | XMS_ITS | Patient Health Record ---
Author Organization [facility] Address [address] [place] [address] Care Team Providers Care Financial Services Consultant Name Role Phone Rafael Torres Primary Care Provider Cammie Rodrigues Unavailable [phone] Allergies Allergen (clinical drug ingredient) Drug/Non Drug Allergy documented on EMR Reaction Allergy Type Onset Date Status acetaminophen / oxycodone Percocet itching/crawlin g Drug Allergy Active Reason For Referral No Information Medications Medication SIG (Take, Route, Frequency, Duration) Notes Start Date End Date Status traMADol HCl 50 MG 1 tablet as needed Orally Once a day Not-Taking HYDROcodone-Acetaminophe n 5-325 MG TAKE ONE TABLET BY MOUTH EVERY SIX (6) HOURS NEEDED FOR 7 DAYS for 7 01/01/2022 Not-Taki ng Furosemide Not-Takin g QUEtiapine Fumarate 100 MG 1 tablet at bedtime Orally Once a day Not-Taking Diclofenac Sodium 75 mg TAKE ONE TABLET BY MOUTH NEEDED TWICE DAILY FOR 30 DAYS for 30 Active Doxepin HCl Not-Taki ng traZODone HCl Not-Ta eileen Cymbalta 60 MG 1 capsule Orally Onc e a day Active rOPINIRole HCl Activ e Social History Tobacco Use: Social History Observation Description Date Details (start date - stop date) Current Smoker NA - NA xTobacco Use/Smoking Question Answer Notes Are you a current smoker How often do you smoke cigarettes? every day How many cigarettes a day do you smoke? 11-20 How soon after you wake up d o you smoke your first cigarette? within 5 minutes Are you interested in quitting? Thinking about q uitting Alcohol Screen (Audit-C) Question Answer Notes Did you have a drink contain ing alcohol in the past year? Yes How often did you have a dri nk containing alcohol in the past year? 2 to 3 times a week (3 points) How many drinks did you have on a typical day when you were drinking in the past year? 5 or 6 drinks (2 points) How often did you have 6 or more drinks on one occasion in the past year? Less than monthly (1 point) Points 6 Interpretation Positive PHQ-9 Question Answer Notes Little interest or pleasure in doing things More than half the days Feeling down, depressed, or hopeless More than h fdc the days Trouble falling or staying asleep, or sleeping t oo much More than half the days Feeling tired or having little energy More than half the days Poor appetite or overeating More than half the d ays Feeling bad about yourself, or that you are a failure, or have let yourself or your family down Several days Trouble concentrating on thi ngs, such as reading the newspaper or watching television More than half the days Moving or speaking so slowly that other people could have noticed. Or the opposite ? 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 Problem [id number] Osteomyelitis o f left foot, unspecified type (M86.9) Active confirmed Plan Of Treatment No Information Insurance Providers Payer Name Payer Address Payer Phone Subscriber Number Group Number Insured Name Patient Relationship to Insured Coverage Start Date Coverage End Date [employer] [place] Medicaid Replacement [address] [address] [place] [address] [phone] [id number] BRANDON ROBSON Self - patient is the insured Medications Administered Medication Instructions Date of Administration Dosage Notes DEPO-Medrol 01/07/2023 1 mL Xylocaine 01/07/2023 2 mL Medical (General) History Medical History History ICD Code chicken pox Surgical History Surgery Date(Month/Year) left heel haglands deformity excision hernia 07/2021 elbow/wrist 12/2020 ligament left ankle 2004 heel 2004 ankle skin graft 2004 Hospitalization History Reason Date(Month/Year) see sx history
--- OUTSIDE RECORDS SUMMARY | 2024-12-26 17:05 | XMS_ITS | Encounter Summary ---
Author Organization [facility] Address 

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
--- OUTSIDE RECORDS SUMMARY | 2024-12-26 17:05 | XMS_ITS | Encounter Summary ---
Author Organization [facility] Address 

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
--- OUTSIDE RECORDS SUMMARY | 2024-12-26 17:05 | XMS_ITS | Encounter Summary ---
Author Organization [facility] Address [address] [place] [address] Care Team Providers Care Pharmacists Name Role Phone Alvin Chan MD Primary Care Provider [phone] Encounter Details Date Type Department Care Team (Late st Contact Info) Description 08/17/2003 Outpatient Historical [facility] RADIOLOG[facility] Bassem Reeves ABDOMINAL PAIN UNSPEC SITE (Primary Dx) Social History Tobacco Use Types Packs/Day Years Used Date Smoking Tobacco: Never Assessed Sex and Gender Information Value Date Recorded Sex Assigned at Not on file Legal Sex Male 4:43 AM HEALTH INFORMATION PROVIDER Gender Identity Not on file Sexual Orientation Not on file documented as of this encounter Plan of Treatment Not on file documented as of this encounter Visit Diagnoses Diagnosis Abdominal pain, unspecified site- Primary documented in this encounter Care Teams Pharmacists Relationship Specialty Start Date End Date Alvin Chan MD PCP - General Family Practice 11/13/11 documented as of this encounter
--- OUTSIDE RECORDS SUMMARY | 2024-12-26 17:05 | XMS_ITS | Encounter Summary ---
Author Organization [facility] Address [address] [place] [address] Care Team Providers Care Technical Sme Name Role Phone Alvin Chan MD Primary Care Provider Encounter Details Date Type Department Care Team (Late st Contact Info) Description 11/05/2004 Outpatient Historical [facility] [address] [facility] [address] [address] Franklyn Olea MD [address] [facility] [address] [place] [address] Social History Tobacco Use Types Packs/Day Years Used Date Smoking Tobacco: Never Assessed Sex and Gender Information Value Date Recorded Sex Assigned at Not on file Legal Sex Male 4:43 AM WAITER/WAITRESS CLUB Gender Identity Not on file Sexual Orientation Not on file documented as of this encounter Plan of Treatment Not on file documented as of this encounter Visit Diagnoses Not on filedocumented in this encounter Care Teams Technical Sme Relationship Specialty Start Date End Date Alvin Chan MD PCP - General Family Practice 11/13/11 documented as of this encounter
--- OUTSIDE RECORDS SUMMARY | 2024-12-26 17:05 | XMS_ITS | Encounter Summary ---
Author Organization [facility] Address [address] [place] [address] Care Team Providers Care Clinical Radiologist Name Role Phone Alvin Chan MD Primary Care Provider [phone] Encounter Details Date Type Department Care Team (Late st Contact Info) Description 11/10/2004 Outpatient Historical [facility] [address] [facility] [address] [place] [address] Santy Scruggs MD [address] [facility] [address] [place] [address] Social History Tobacco Use Types Packs/Day Years Used Date Smoking Tobacco: Never Assessed Sex and Gender Information Value Date Recorded Sex Assigned at Not on file Legal Sex Male 4:43 AM HOUSEKEEPING MANAGER Gender Identity Not on file Sexual Orientation Not on file documented as of this encounter Plan of Treatment Not on file documented as of this encounter Visit Diagnoses Not on filedocumented in this encounter Care Teams Clinical Radiologist Relationship Specialty Start Date End Date Alvin Chan MD PCP - General Family Practice 11/13/11 documented as of this encounter
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
--- OUTSIDE RECORDS SUMMARY | 2024-12-26 17:05 | XMS_ITS | Encounter Summary ---
Author Organization [facility] Address [address] [place] [address] Care Team Providers Care Watch Dial Printer Name Role Phone Alvin Chan MD Primary Care Provider [phone] Encounter Details Date Type Department Care Team (Latest Contact Info) Description 02/21/1999 Outpatient Historical [facility] Jarret Nichols NO ADDRESS ON FILE Cervicalgia (Primary Dx) Social History Tobacco Use Types Packs/Day Years Used Date Smoking Tobacco: Never Assessed Sex and Gender Information Value Date Recorded Sex Assigned at Not on file Legal Sex Male 4:43 AM HOSPITAL WELLNESS COORDINATOR Gender Identity Not on file Sexual Orientation Not on file documented as of this encounter Plan of Treatment Not on file documented as of this encounter Visit Diagnoses Diagnosis Cervicalgia- Primary documented in this encounter Care Teams Watch Dial Printer Relationship Specialty Start Date End Date Alvin Chan MD PCP - General Family Practice 11/13/11 documented as of this encounter
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
[2024-12-26 17:06] VITALS: BP 138/93; PULSE 80; TEMP 36.7; O2SAT 99
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
--- OUTSIDE RECORDS SUMMARY | 2024-12-26 17:06 | XMS_ITS | Encounter Summary ---
Author Organization [facility] Address [address] [place] [address] Care Team Providers Care Benefits Consultant Name Role Phone Alvin Chan MD Primary Care Provider [phone] Encounter Details Date Type Department Care Team (Late st Contact Info) Description 11/26/2004 Outpatient Historical [facility] [address] [facility] [address] [address] Franklyn Olea MD [address] [facility] [address] [place] [address] Social History Tobacco Use Types Packs/Day Years Used Date Smoking Tobacco: Never Assessed Sex and Gender Information Value Date Recorded Sex Assigned at Not on file Legal Sex Male 4:43 AM KNIFE OPERATOR Gender Identity Not on file Sexual Orientation Not on file documented as of this encounter Plan of Treatment Not on file documented as of this encounter Visit Diagnoses Not on filedocumented in this encounter Care Teams Benefits Consultant Relationship Specialty Start Date End Date Alvin Chan MD PCP - General Family Practice 11/13/11 documented as of this encounter
--- OUTSIDE RECORDS SUMMARY | 2024-12-26 17:06 | XMS_ITS | Encounter Summary ---
Author Organization [facility] Address [address] [place] [address] Care Team Providers Care Dust Control Engineer Name Role Phone Alvin Chan MD Primary Care Provider [phone] Encounter Details Date Type Department Care Team (Late st Contact Info) Description 12/16/2004 Outpatient Historical [facility] [address] [facility] [address] [place] [address] Shelton Darling MD [address] [facility] [address] [place] [address] Social History Tobacco Use Types Packs/Day Years Used Date Smoking Tobacco: Never Assessed Sex and Gender Information Value Date Recorded Sex Assigned at Not on file Legal Sex Male 4:43 AM MANAGER ENT Gender Identity Not on file Sexual Orientation Not on file documented as of this encounter Plan of Treatment Not on file documented as of this encounter Visit Diagnoses Not on filedocumented in this encounter Care Teams Dust Control Engineer Relationship Specialty Start Date End Date Alvin Chan MD PCP - General Family Practice 11/13/11 documented as of this encounter
--- OUTSIDE RECORDS SUMMARY | 2024-12-26 17:06 | XMS_ITS | Encounter Summary ---
Author Organization [facility] Address [address] [place] [address] Care Team Providers Care Control Room Operator Name Role Phone Alvin Chan MD Primary Care Provider [phone] Encounter Details Date Type Department Care Team (Late st Contact Info) Description 03/08/2006 Outpatient Historical [facility] EM[facility] WASH Ted Peggy Contact Dermatitis and Other Eczema due to Plants (except Food) (Primary Dx) Social History Tobacco Use Types Packs/Day Years Used Date Smoking Tobacco: Never Assessed Sex and Gender Information Value Date Recorded Sex Assigned at Not on file Legal Sex Male 4:43 AM INSPECTOR AND TESTER Gender Identity Not on file Sexual Orientation Not on file documented as of this encounter Plan of Treatment Not on file documented as of this encounter Visit Diagnoses Diagnosis Contact dermatitis and other eczema due to plants (except food)- Primary documented in this encounter Care Teams Control Room Operator Relationship Specialty Start Date End Date Alvin Chan MD PCP - General Family Practice 11/13/11 documented as of this encounter
--- OUTSIDE RECORDS SUMMARY | 2024-12-26 17:06 | XMS_ITS | Encounter Summary ---
Author Organization [facility] Address [address] [place] [address] Care Team Providers Care Link Trainer Maintenance Worker Name Role Phone Alvin Chan MD Primary Care Provider [phone] Encounter Details Date Type Department Care Team (Late st Contact Info) Description 12/26/2004 Outpatient Historical [facility] [address] [facility] [address] [place] [address] Shelton Darling MD [address] [facility] [address] [place] [address] Social History Tobacco Use Types Packs/Day Years Used Date Smoking Tobacco: Never Assessed Sex and Gender Information Value Date Recorded Sex Assigned at Not on file Legal Sex Male 4:43 AM EFFICIENCY EXPERT Gender Identity Not on file Sexual Orientation Not on file documented as of this encounter Plan of Treatment Not on file documented as of this encounter Visit Diagnoses Not on filedocumented in this encounter Care Teams Link Trainer Maintenance Worker Relationship Specialty Start Date End Date Alvin Chan MD PCP - General Family Practice 11/13/11 documented as of this encounter
--- OUTSIDE RECORDS SUMMARY | 2024-12-26 17:06 | XMS_ITS | Encounter Summary ---
Author Organization [facility] Address [address] [place] [address] Care Team Providers Care All Around Patternmaker Name Role Phone Alvin Chan MD Primary Care Provider [phone] Encounter Details Date Type Department Care Team (Late st Contact Info) Description 12/05/2004 Outpatient Historical [facility] [address] [facility] [address] [place] [address] Shelton Darling MD [address] [facility] [address] [place] [address] Social History Tobacco Use Types Packs/Day Years Used Date Smoking Tobacco: Never Assessed Sex and Gender Information Value Date Recorded Sex Assigned at Not on file Legal Sex Male 4:43 AM INTELLIGENCE OPERATIONS Gender Identity Not on file Sexual Orientation Not on file documented as of this encounter Plan of Treatment Not on file documented as of this encounter Visit Diagnoses Not on filedocumented in this encounter Care Teams All Around Patternmaker Relationship Specialty Start Date End Date Alvin Chan MD PCP - General Family Practice 11/13/11 documented as of this encounter
--- OUTSIDE RECORDS SUMMARY | 2024-12-26 17:06 | XMS_ITS | Encounter Summary ---
Author Organization [facility] Address [address] [place] [address] Care Team Providers Care Associate Financial Analyst Name Role Phone Alvin Chan MD Primary Care Provider [phone] Encounter Details Date Type Department Care Team (Late st Contact Info) Description 03/10/2005 Outpatient Historical [facility] [address] [facility] [address] [place] [address] Shelton Darling MD [address] [facility] [address] [place] [address] Social History Tobacco Use Types Packs/Day Years Used Date Smoking Tobacco: Never Assessed Sex and Gender Information Value Date Recorded Sex Assigned at Not on file Legal Sex Male 4:43 AM CHEMICAL RECLAMATION EQUIPMENT OPERATOR Gender Identity Not on file Sexual Orientation Not on file documented as of this encounter Plan of Treatment Not on file documented as of this encounter Visit Diagnoses Not on filedocumented in this encounter Care Teams Associate Financial Analyst Relationship Specialty Start Date End Date Alvin Chan MD PCP - General Family Practice 11/13/11 documented as of this encounter
--- OUTSIDE RECORDS SUMMARY | 2024-12-26 17:06 | XMS_ITS | Encounter Summary ---
Author Organization [facility] Address [address] [place] [address] Care Team Providers Care Lawyer Name Role Phone Alvin Chan MD Primary Care Provider [phone] Encounter Details Date Type Department Care Team (Late st Contact Info) Description 02/04/2005 Outpatient Historical [facility] [address] [facility] [address] [address] Franklyn Olea MD [address] [facility] [address] [place] [address] Social History Tobacco Use Types Packs/Day Years Used Date Smoking Tobacco: Never Assessed Sex and Gender Information Value Date Recorded Sex Assigned at Not on file Legal Sex Male 4:43 AM DETECTIVE Gender Identity Not on file Sexual Orientation Not on file documented as of this encounter Plan of Treatment Not on file documented as of this encounter Visit Diagnoses Not on filedocumented in this encounter Care Teams Lawyer Relationship Specialty Start Date End Date Alvin Chan MD PCP - General Family Practice 11/13/11 documented as of this encounter
--- OUTSIDE RECORDS SUMMARY | 2024-12-26 17:06 | XMS_ITS | Encounter Summary ---
Author Organization [facility] Address [address] [place] [address] Care Team Providers Care Balling Head Tender Name Role Phone Alvin Chan MD Primary Care Provider [phone] Encounter Details Date Type Department Care Team (Late st Contact Info) Description 01/23/2005 Outpatient Historical [facility] [address] [facility] [address] [address] Franklyn Olea MD [address] [facility] [address] [place] [address] Social History Tobacco Use Types Packs/Day Years Used Date Smoking Tobacco: Never Assessed Sex and Gender Information Value Date Recorded Sex Assigned at Not on file Legal Sex Male 4:43 AM PARTS SALES MANAGER Gender Identity Not on file Sexual Orientation Not on file documented as of this encounter Plan of Treatment Not on file documented as of this encounter Visit Diagnoses Not on filedocumented in this encounter Care Teams Balling Head Tender Relationship Specialty Start Date End Date Alvin Chan MD PCP - General Family Practice 11/13/11 documented as of this encounter
--- OUTSIDE RECORDS SUMMARY | 2024-12-26 17:06 | XMS_ITS | Encounter Summary ---
Author Organization [facility] Address [address] [place] [address] Care Team Providers Care Bridge Teacher Name Role Phone Alvin Chan MD Primary Care Provider [phone] Encounter Details Date Type Department Care Team (Latest Contact Info) Description 04/28/2005 Outpatient Historical [facility] EM[facility] RO[facility] WASH Mel Holcomb PAIN IN LIMB (Primary Dx) Social History Tobacco Use Types Packs/Day Years Used Date Smoking Tobacco: Never Assessed Sex and Gender Information Value Date Recorded Sex Assigned at Not on file Legal Sex Male 4:43 AM AFTER SCHOOL COORDINATOR Gender Identity Not on file Sexual Orientation Not on file documented as of this encounter Plan of Treatment Not on file documented as of this encounter Visit Diagnoses Diagnosis Pain in limb- Primary documented in this encounter Care Teams Bridge Teacher Relationship Specialty Start Date End Date Alvin Chan MD PCP - General Family Practice 11/13/11 documented as of this encounter
--- OUTSIDE RECORDS SUMMARY | 2024-12-26 17:06 | XMS_ITS | Encounter Summary ---
Author Organization [facility] Address [address] [place] [address] Care Team Providers Care Commissioned Defence [employer] Officer Name Role Phone Alvin Chan MD Primary Care Provider [phone] Encounter Details Date Type Department Care Team (Latest Contact Info) Description 05/26/1999 Outpatient Historical [facility] Darren, Mehdi Barger MD Cervicalgia (Primary Dx) Social History Tobacco Use Types Packs/Day Years Used Date Smoking Tobacco: Never Assessed Sex and Gender Information Value Date Recorded Sex Assigned at Not on file Legal Sex Male 4:43 AM LIGHTER Gender Identity Not on file Sexual Orientation Not on file documented as of this encounter Plan of Treatment Not on file documented as of this encounter Visit Diagnoses Diagnosis Cervicalgia- Primary documented in this encounter Care Teams Commissioned Defence [employer] Officer Relationship Specialty Start Date End Date Alvin Chan MD PCP - General Family Practice 11/13/11 documented as of this encounter
--- OUTSIDE RECORDS SUMMARY | 2024-12-26 17:06 | XMS_ITS | Encounter Summary ---
Author Organization [facility] Address [address] [place] [address] Care Team Providers Care Psychiatric Nursing Assistant Name Role Phone Alvin Chan MD Primary Care Provider [phone] Encounter Details Date Type Department Care Team (Late st Contact Info) Description 04/21/2005 Outpatient Historical [facility] [address] [facility] [address] [place] [address] Shelton Darling MD [address] [facility] [address] [place] [address] Social History Tobacco Use Types Packs/Day Years Used Date Smoking Tobacco: Never Assessed Sex and Gender Information Value Date Recorded Sex Assigned at Not on file Legal Sex Male 4:43 AM BOILER CONTROL TECHNICIAN Gender Identity Not on file Sexual Orientation Not on file documented as of this encounter Plan of Treatment Not on file documented as of this encounter Visit Diagnoses Not on filedocumented in this encounter Care Teams Psychiatric Nursing Assistant Relationship Specialty Start Date End Date Alvin Chan MD PCP - General Family Practice 11/13/11 documented as of this encounter
--- OUTSIDE RECORDS SUMMARY | 2024-12-26 17:06 | XMS_ITS | Encounter Summary ---
Author Organization [facility] Address [address] [place] [address] Care Team Providers Care Funds Transfer Clerk Name Role Phone Alvin Chan MD Primary Care Provider [phone] Encounter Details Date Type Department Care Team (Late st Contact Info) Description 01/09/2005 Outpatient Historical [facility] [id number] [facility] [address] [place] [phone] Shelton Darling MD [address] [facility] [address] [place] [address] Social History Tobacco Use Types Packs/Day Years Used Date Smoking Tobacco: Never Assessed Sex and Gender Information Value Date Recorded Sex Assigned at Not on file Legal Sex Male 4:43 AM HEALTH FACILITIES SURVEYOR Gender Identity Not on file Sexual Orientation Not on file documented as of this encounter Plan of Treatment Not on file documented as of this encounter Visit Diagnoses Not on filedocumented in this encounter Care Teams Funds Transfer Clerk Relationship Specialty Start Date End Date Alvin Chan MD PCP - General Family Practice 11/13/11 documented as of this encounter
--- OUTSIDE RECORDS SUMMARY | 2024-12-26 17:06 | XMS_ITS | Encounter Summary ---
Author Organization [facility] Address [address] [place] [address] Care Team Providers Care Foot Piece Assembler Name Role Phone Alvin Chan MD Primary Care Provider [phone] Encounter Details Date Type Department Care Team (Latest Contact Info) Description 05/23/2005 Outpatient Historical [facility] Camden Aguilar MD NO ADDRESS ON FILE SWELLING OF LIMB (Primary Dx) Social History Tobacco Use Types Packs/Day Years Used Date Smoking Tobacco: Never Assessed Sex and Gender Information Value Date Recorded Sex Assigned at Not on file Legal Sex Male 4:43 AM BULB ASSEMBLER Gender Identity Not on file Sexual Orientation Not on file documented as of this encounter Plan of Treatment Not on file documented as of this encounter Visit Diagnoses Diagnosis Swelling of limb- Primary documented in this encounter Care Teams Foot Piece Assembler Relationship Specialty Start Date End Date Alvin Chan MD PCP - General Family Practice 11/13/11 documented as of this encounter
--- OUTSIDE RECORDS SUMMARY | 2024-12-26 17:06 | XMS_ITS | Encounter Summary ---
Author Organization [facility] Address [address] [place] [address] Care Team Providers Care Contact And Service Clerks Supervisor Name Role Phone Alvin Chan MD Primary Care Provider [phone] Encounter Details Date Type Department Care Team (Late st Contact Info) Description 11/19/2004 Outpatient Historical [facility] [address] [facility] [address] [place] [phone] Santy Scruggs MD [address] [facility] [address] [place] [address] Social History Tobacco Use Types Packs/Day Years Used Date Smoking Tobacco: Never Assessed Sex and Gender Information Value Date Recorded Sex Assigned at Not on file Legal Sex Male 4:43 AM WILDLIFE CONTROL AGENT Gender Identity Not on file Sexual Orientation Not on file documented as of this encounter Plan of Treatment Not on file documented as of this encounter Visit Diagnoses Not on filedocumented in this encounter Care Teams Contact And Service Clerks Supervisor Relationship Specialty Start Date End Date Alvin Chan MD PCP - General Family Practice 11/13/11 documented as of this encounter
--- OUTSIDE RECORDS SUMMARY | 2024-12-26 17:06 | XMS_ITS | Encounter Summary ---
Author Organization [facility] Address [address] [place] [address] Care Team Providers Care Client Success Specialist Name Role Phone Alvin Chan MD Primary Care Provider [phone] Encounter Details Date Type Department Care Team (Late st Contact Info) Description 10/30/2005 Outpatient Historical [facility] [address] [facility] [address] [place] [phone] Shelton Darling MD [address] 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
--- OUTSIDE RECORDS SUMMARY | 2024-12-26 17:06 | XMS_ITS | Clinical Summary ---
Author Organization [facility] Address [address] [place] [address] Phone Care Team Providers Care Project Controller Name Role Phone Alvin Chan MD Primary Care Provider [phone] Allergies No known active allergies Medications lisinopril (PRINIVIL) 20 mg Oral tabletIndication s:Essential hypertension, benign Take 1 Tab by mouth daily. 30 Tab 0 08/01/2012 Active naproxen (NAPROSYN) 500 mg Oral tabletIndication s:Carpal tunnel syndrome on right Take 1 Tab by mouth 2 times daily with meals. 60 Tab 0 08/01/2012 Active Active Problems Problem Noted Date Diagnosed Date Elevated LFTs 11/13/2011 Hypokalemia 11/12/2011 Essential hypertension, benign 11/06/2011 Depression, major, single episode, moderate 10/19 Alcohol abuse, continuous drinking behavior 10/19 Tobacco abuse 11/06/2011 Resolved Problems Problem Noted Date Diagnosed Date Resolved Date Elevated LFTs 11/13/2011 08/01/2012 Acute renal failure 11/13/2011 08/01/19 13 Nausea & vomiting 11/13/2011 08/01/2012 Near syncope 11/13/2011 08/01/2012 Acute renal failure 11/13/2011 08/01/19 13 Dehydration 11/12/2011 08/01/2012 Bronchitis 11/06/2011 08/01/2012 Family History Medical History Relation Name Comments Cancer Brother 1 Antony lymphoma Anxiety Brother 2 Guy Healthy Brother 2 Guy Cancer Father Anxiety Mother Depression Mother Stroke Mother Cancer Other niece Sarcoma Cancer Sister 1 Pat Anxiety Sister 2 Mel Drug Abuse Sister 3 Jennifer Anxiety Sister 4 Marcia Relation Name Status Comments Brother 1 Antony Brother 2 Guy Alive Daughter Alive Father Mother Other niece Alive Sister 1 Pat Sister 2 Mel Alive Sister 3 Jennifer Alive Sister 4 Marcia Alive Sister 5 Rachel Alive Sister 6 Erinn Alive Son Alive Social History Tobacco Use Types Packs/Day Years Used Date Smoking Tobacco: Every Day Cigarettes 2 15 Smokeless Tobacco: Never Tobacco Cessation:Ready to Q uit: Yes Comments:QUIT NOW info given, [employer] info Alcohol Use Standard Drinks/Week Comments Yes 4.2 (1 standard drink = 0.6 oz p ure alcohol) Sex and Gender Information Value Date Recorded Sex Assigned at Not on file 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 Gender Identity Not on file Sexual Orientation Not on file Occupation Industry Job Start Date Job End Date Not on file Not on file Not on file Not on file Last Filed Vital Signs Vital Sign Reading Time Taken Comments Blood Pressure 162/96 08/01/2012 9:54 AM COVER CREASER man ually Pulse 90 08/01/2012 9:27 AM COVER CREASER Temperature 37 C (98.6 F) 08/01/2012 9:27 AM COVER CREASER Respiratory Rate 20 08/01/2012 9:27 AM COVER CREASER Oxygen Saturation 100% 08/01/2012 9:27 AM COVER CREASER ra rest Inhaled Oxygen Concentration - - Weight 80.3 kg (177 lb) 08/01/2012 9:27 AM COVER CREASER Height 167.6 cm (5' 6 ) 08/01/2012 9:27 AM COVER CREASER Body Mass Index 28.57 08/01/2012 9:27 AM COVER CREASER Plan of Treatment Health Maintenance Due Date Last Done Comments DTAP/TDAP/TD VACCINES (1 - Tdap) 1986 HEPATITIS B VACCINES (1 of 3 - 19+ 3-dose series) 1986 FIT-DNA Q 3 years 2012 FIT/FOBT Q 1 year 2012 Flex Sig/CT Colonography Q 5 years 2012 ZOSTER VACCINE (1 of 2) 2017 COLORECTAL SCREENING 08/01/2019 08/01/2009 (Previously completed) Colorectal Cancer Screening 08/01/2019 INFLUENZA VACCINE (#1) 2025 Care Teams Project Controller Relationship Specialty Start Date End Date Alvin Chan MD PCP - General Family Practice 11/13/11
--- NOTE | 2024-12-26 17:14 | ED_ITS ---
Documented by User: Kit Cheney DO 12/28/24 09:46 HPI - Nausea/Vomiting/Diarrhea 2 General: Chief complaint: Nausea/Vomiting/Diarrhea Stated complaint: sweating, diarrhea Time Seen by Provider: 12/26/24 17:14 History of Present Illness: 59-year-old male presents emergency room complaining of diarrhea he intermittently has had bloody stools. He has had multiple colonoscopies in the past about 4 years ago with several polyps removed. He has not seen bright red blood but has seen what he calls coffee-ground like stools with very foul smell. No recent antibiotics. No vomiting no fever sweats or chills. He also has a little bit of right flank pain. He denies any hematuria no dysuria urgency. Associated nausea: No Associated symtoms: Denies chest pain, dysuria or nausea Related Data Previous Rx's ?Medication ?Instructions ?Recorded duloxetine 60 mg capsule,delayed 120 mg (2 x 60 mg) PO DAILY #60 10/20/24 release caps quetiapine 100 mg tablet (Seroquel) 200 mg (2 x 100 mg ) PO DAILY #60 10/20/24 tabs lisinopril 10 mg tablet 10 mg PO DAILY #30 tabs 11/19 12/13 nicotine See Rx Instructions transder mal 12/06/24 21mg/24hr-14mg/24hr-7mg/24hr daily .COMPLEX #56 patche s transderm patches,sequentl hydrocodone 10 mg-acetaminophen 1 tab PO Q6H PRN pain 5 days #20 12/20/24 325 mg tablet tabs Allergies Allergy/AdvReac Type Severity Reaction Status Date / Time No Known Allergies Allergy Verified 12/26/24 17:10 Review of Systems 2 Const: Denies: fever(s) or chills Card: Denies: chest pain Resp: Denies: dyspnea GI: Reports: diarrhea (Dark, foul-smelling); Denies: abdominal pain, nausea or vomiting : Denies: dysuria, urinary frequency or urinary urgency Musc: Denies: neck pain or back pain Skin/Breast: Denies: rash PFSH ED 2 PFSH: Medical History 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 pylori infection Insomnia Sleep apnea History of colon polyps Umbilical hernia Surgical History Hx of cholecystectomy Hx of appendectomy History of ankle surgery left ankle-skin graft Hx of decompression of ulnar nerve left elbow and wrist History of colonoscopy History of carpal tunnel release left Hx of umbilical hernia repair 08/12/21 Dr. Cadet Family History Mother Cancer Father Cancer Brother Cancer Social History Smoking and tobacco/nicotine status: current every day tobacco/nicotine user cigarettes Packs smoked per day: 1.5 Alcohol intake: current Alcohol intake frequency: holidays/special occasions only Physical Exam 2 Const: COMMON NORMALS: no acute distress GENERAL APPEARANCE: cooperative and comfortable ORIENTATION/CONSCIOUSNESS: Yes awake, Yes oriented to person, Yes oriented to place and Yes oriented to time HENMT: COMMON NORMALS: normocephalic, atraumatic and hearing grossly normal bilaterally HEAD & SCALP: normocephalic and atraumatic Resp: COMMON NORMALS: normal respiratory effort, No retractions, No use of accessory muscles and clear to auscultation bilaterally AUSCULTATION: clear to auscultation bilaterally Cardio: COMMON NORMALS: regular rate, regular rhythm and No murmurs present (Cardio) RATE: regular rate RHYTHM: regular rhythm GI: COMMON NORMALS: Soft to palpation and No hepatosplenomegaly present A USCULTATION: Yes normoactive bowel sounds PALPATION: Yes Soft to palpation, No Tenderness to palpation present (GI), No Guarding due to palpation present (GI) and Yes No hepatosplenomegaly present Extremity: COMMON NORMALS: normal to inspection, capillary refill normal, no clubbing, cyanosis or edema, no calf tenderness and no pedal edema Neuro: SENSORIUM/ORIENTATION: Yes oriented to person, Yes oriented to place and Yes oriented to time Skin: COMMON NORMALS: no rashes or lesions noted GENERAL SKIN EXAM: no rashes or lesions noted Course 2 Vital Signs: Vital signs: Vital Signs Temperature 98.0 F 12/26/24 17:06 Pulse Rate 78 12/26/24 18:19 Blood Pressure 138/93 12/26/24 17:06 Pulse Oximetry 99 12/26/24 18:19 Oxygen Delivery Me thod Room Air 12/26/24 17:06 MDM - Nausea/Vomiting/Diarrhea Medical Decision Making Care signed out to Dr. Wheeler at change of shift. See final notes for diagnosis and disposition. Lab Data 12/26/24 17:15 12/26/24 17:15 Laboratory Results WBC 11.50 10^3/uL (3.29-11.43) H 12/26/24 17:15 RBC 5.91 10^6/uL (3.85-5.65) H 12/26/24 17:15 Hgb 19.30 g/dL (11.27-16.99) H 12/26/24 17:15 Hct 53.2 % (37-53) H 12/26/24 17:15 MCV 90.0 fl (82-101) 12/26/24 17:15 MCH 32.7 pg (27-33) 12/26/24 17:15 MCHC 36.3 g/dL (30-55) 12/26/24 17:15 RDW 15.6 % (12.1-15.1) H 12/26/24 17:15 Plt Count 238 10^3/cmm (157-399) 12/26/24 17:15 MPV 9.7 fL (7.4-10.4) 12/26/24 17:15 Neut % (Auto) 69.4 % 12/26/24 17:15 Lymph % (Auto) 21.7 % 12/26/24 17:15 Keith % (Auto) 7.0 % 12/26/24 17:15 Eos % (Auto) 1.3 % 12/26/24 17:15 Baso % (Auto) 0.3 % 12/26/24 17:15 Neut # (Auto) 7.98 10^3/uL (1.8-7.7) H 12/26/24 17:15 Lymph # (Auto) 2.5 10^3/uL (0.8-4.8) 12/26/24 17:15 Keith # (Auto) 0.8 10^3/uL (0.2-0.9) 12/26/24 17:15 Eos # (Auto) 0.2 10^3/uL (0.0-0.8) 12/26/24 17:15 Baso # (Auto) 0.0 10^3/uL (0.0-0.1) 12/26/24 17:15 Nucleated RBC % (auto) 0 % 12/26/24 17:15 Nucleated RBCs # 0.0 /100WBC 12/26/24 17:15 Sodium 137 mmol/L (136-145) 12/26/24 17:15 Potassium 3.8 mmol/L (3.5-5.1) 12/26/24 17:15 Chloride 102 mmol/L (98-107) 12/26/24 17:15 Carbon Dioxide 20 mmol/L (22-29) L 12/26/24 17:15 Anion Gap 18.8 (5-19) 12/26/24 17:15 BUN 12 mg/dL (6-20) 12/26/24 17:15 Creatinine 0.6 mg/dL (0.7-1.2) L 12/26/24 17:15 GFR Calculation 138.9 mL/min (90-130) H 12/26/24 17:15 Glucose 87 mg/dL (65-115) 12/26/24 17:15 Calculated Osmolality 283 mOsm/kg (285-295) L 12/26/24 17:15 Calcium 9.8 mg/dL (8.5-10.5) 12/26/24 17:15 Total Bilirubin 0.5 mg/dL (0.15-1.2) 12/26/24 17:15 AST 20 U/L (0-40) 12/26/24 17:15 ALT 28 U/L (0-41) 12/26/24 17:15 Alkaline Phosphatase 104 U/L (40-130) 12/26/24 17:15 Total Protein 7.7 g/dL (6.6-8.7) 12/26/24 17:15 Albumin 4.5 g/dL (3.5-5.2) 12/26/24 17:15 Globulin 3.2 g/dL (1.3-4.6) 12/26/24 17:15 Lipase 15 U/L (13-60) 12/26/24 17:15 Discharge Plan Discharge Patient Disposition: Home Clinical Impression: Blood in stool Condition: Stable Prescriptions: No Action lisinopril 10 mg tablet 10 mg PO DAILY Qty: 30 0RF quetiapine [Seroquel] 100 mg tablet 200 mg PO DAILY Qty: 60 2RF duloxetine 60 mg capsule,delayed release(DR/EC) 120 mg PO DAILY Qty: 60 2RF nicotine 21-14-7 mg/24 hr patch, TD daily, sequential See Rx Instructions transdermal .COMPLEX Qty: 56 0RF Rx Instructions: apply 1-21 mg NICOTINE PATCH daily for 28 days; follow with 1-14 mg PATCH daily for 14 days, then 1-7mg PATCH daily for 14 days transdermal hydrocodone-acetaminophen 10-325 mg tablet 1 tab PO Q6H PRN (Reason: pain) 5 Days Qty: 20 0RF Discharge Orders: Discharge ED (Routine); Ordered 12/26/24 Ordered By: Elías Wheeler Referrals: Noemy Guerrero NP [Primary Care Provider, Family Practice] Patient Instructions: Patient Portal & Doug Instructions Print Language: Citizen Of [place] Coding Level of Care Code ED Picture Engraver for Chg Fwd Documented by User: Elías Wheeler MD 12/26/24 18:12 HPI - Nausea/Vomiting/Diarrhea 2 General: Chief complaint: Nausea/Vomiting/Diarrhea Stated complaint: sweating, diarrhea Time Seen by Provider: 12/26/24 17:14 Related Data Previous Rx's ?Medication ?Instructions ?Recorded duloxetine 60 mg capsule,delayed 120 mg (2 x 60 mg) PO DAILY #60 10/20/24 release caps quetiapine 100 mg tablet (Seroquel) 200 mg (2 x 100 mg ) PO DAILY #60 10/20/24 tabs lisinopril 10 mg tablet 10 mg PO DAILY #30 tabs 11/19 12/13 nicotine See Rx Instructions transder mal 12/06/24 21mg/24hr-14mg/24hr-7mg/24hr daily .COMPLEX #56 patche s transderm patches,sequentl hydrocodone 10 mg-acetaminophen 1 tab PO Q6H PRN pain 5 days #20 12/20/24 325 mg tablet tabs Allergies Allergy/AdvReac Type Severity Reaction Status Date / Time No Known Allergies Allergy Verified 12/26/24 17:10 PFSH ED 2 PFSH: Medical History 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 pylori infection Insomnia Sleep apnea History of colon polyps Umbilical hernia Surgical History Hx of cholecystectomy Hx of appendectomy History of ankle surgery left ankle-skin graft Hx of decompression of ulnar nerve left elbow and wrist History of colonoscopy History of carpal tunnel release left Hx of umbilical hernia repair 08/12/21 Dr. Cadet Family History Mother Cancer Father Cancer Brother Cancer Social History Smoking and tobacco/nicotine status: current every day tobacco/nicotine user cigarettes Packs smoked per day: 1.5 Alcohol intake: current Alcohol intake frequency: holidays/special occasions only Course 2 Vital Signs: Vital signs: Vital Signs Temperature 98.0 F 12/26/24 17:06 Pulse Rate 78 12/26/24 18:19 Blood Pressure 138/93 12/26/24 17:06 Pulse Oximetry 99 12/26/24 18:19 Oxygen Delivery Me thod Room Air 12/26/24 17:06 MDM - Nausea/Vomiting/Diarrhea Medical Records Signout from Dr. Cheney at 6 PM. Patient here with concerns for possible blood in his stool. Awaiting lab results. On reassessment I talked to the patient about his test results. His hemoglobin is 19.3. He states he has a history of hemochromatosis and is following up with hematology. His creatinine is normal at 0.6 with a BUN of 12. His abdomen continues to be soft and nontender. Will discharge at this time with precautions to return for worsening or changing symptoms. Lab Data 12/26/24 17:15 12/26/24 17:15 Laboratory Results WBC 11.50 10^3/uL (3.29-11.43) H 07/08/25 17:15 RBC 5.91 10^6/uL (3.85-5.65) H 12/26/24 17:15 Hgb 19.30 g/dL (11.27-16.99) H 12/26/24 17:15 Hct 53.2 % (37-53) H 12/26/24 17:15 MCV 90.0 fl (82-101) 12/26/24 17:15 MCH 32.7 pg (27-33) 12/26/24 17:15 MCHC 36.3 g/dL (30-55) 12/26/24 17:15 RDW 15.6 % (12.1-15.1) H 12/26/24 17:15 Plt Count 238 10^3/cmm (157-399) 12/26/24 17:15 MPV 9.7 fL (7.4-10.4) 12/26/24 17:15 Neut % (Auto) 69.4 % 12/26/24 17:15 Lymph % (Auto) 21.7 % 12/26/24 17:15 Keith % (Auto) 7.0 % 12/26/24 17:15 Eos % (Auto) 1.3 % 12/26/24 17:15 Baso % (Auto) 0.3 % 12/26/24 17:15 Neut # (Auto) 7.98 10^3/uL (1.8-7.7) H 12/26/24 17:15 Lymph # (Auto) 2.5 10^3/uL (0.8-4.8) 12/26/24 17:15 Keith # (Auto) 0.8 10^3/uL (0.2-0.9) 12/26/24 17:15 Eos # (Auto) 0.2 10^3/uL (0.0-0.8) 12/26/24 17:15 Baso # (Auto) 0.0 10^3/uL (0.0-0.1) 12/26/24 17:15 Nucleated RBC % (auto) 0 % 12/26/24 17:15 Nucleated RBCs # 0.0 /100WBC 12/26/24 17:15 Sodium 137 mmol/L (136-145) 12/26/24 17:15 Potassium 3.8 mmol/L (3.5-5.1) 12/26/24 17:15 Chloride 102 mmol/L (98-107) 12/26/24 17:15 Carbon Dioxide 20 mmol/L (22-29) L 12/26/24 17:15 Anion Gap 18.8 (5-19) 12/26/24 17:15 BUN 12 mg/dL (6-20) 12/26/24 17:15 Creatinine 0.6 mg/dL (0.7-1.2) L 12/26/24 17:15 GFR Calculation 138.9 mL/min (90-130) H 12/26/24 17:15 Glucose 87 mg/dL (65-115) 12/26/24 17:15 Calculated Osmolality 283 mOsm/kg (285-295) L 12/26/24 17:15 Calcium 9.8 mg/dL (8.5-10.5) 12/26/24 17:15 Total Bilirubin 0.5 mg/dL (0.15-1.2) 12/26/24 17:15 AST 20 U/L (0-40) 12/26/24 17:15 ALT 28 U/L (0-41) 12/26/24 17:15 Alkaline Phosphatase 104 U/L (40-130) 12/26/24 17:15 Total Protein 7.7 g/dL (6.6-8.7) 12/26/24 17:15 Albumin 4.5 g/dL (3.5-5.2) 12/26/24 17:15 Globulin 3.2 g/dL (1.3-4.6) 12/26/24 17:15 Lipase 15 U/L (13-60) 12/26/24 17:15 No radiology studies performed this visit Discharge Plan Discharge Patient Disposition: Home Clinical Impression: Blood in stool Condition: Stable Prescriptions: No Action lisinopril 10 mg tablet 10 mg PO DAILY Qty: 30 0RF quetiapine [Seroquel] 100 mg tablet 200 mg PO DAILY Qty: 60 2RF duloxetine 60 mg capsule,delayed release(DR/EC) 120 mg PO DAILY Qty: 60 2RF nicotine 21-14-7 mg/24 hr patch, TD daily, sequential See Rx Instructions transdermal .COMPLEX Qty: 56 0RF Rx Instructions: apply 1-21 mg NICOTINE PATCH daily for 28 days; follow with 1-14 mg PATCH daily for 14 days, then 1-7mg PATCH daily for 14 days transdermal hydrocodone-acetaminophen 10-325 mg tablet 1 tab PO Q6H PRN (Reason: pain) 5 Days Qty: 20 0RF Discharge Orders: Discharge ED (Routine); Ordered 12/26/24 Ordered By: Elías Wheeler Referrals: Noemy Guerrero NP [Primary Care Provider, Family Practice] Patient Instructions: Patient Portal & Doug Instructions Print Language: Citizen Of [place] Coding Level of Care Code ED Picture Engraver for Isela Christina
[2024-12-26 17:54] LABS: Hematocrit 53.2 % (37-53); Hemoglobin 19.30 g/dL (11.27-16.99); Mean Corpuscular HGB Conc 36.3 g/dL (30-55); Mean Corpuscular Hemoglobin 32.7 pg (27-33); Mean Corpuscular Volume 90.0 fl (82-101); Nucleated Red Blood Cells % 0 %; Platelet Count 238 10^3/cmm (157-399); Red Blood Count 5.91 10^6/uL (3.85-5.65); White Blood Count 11.50 10^3/uL (3.29-11.43)
[2024-12-26 18:03] LABS: Alanine Aminotransferase 28 U/L (0-41); Albumin Level 4.5 g/dL (3.5-5.2); Alkaline Phosphatase 104 U/L (40-130); Anion Gap 18.8 (5-19); Aspartate Amino Transferase 20 U/L (0-40); Blood Urea Nitrogen 12 mg/dL (6-20); Calcium 9.8 mg/dL (8.5-10.5); Carbon Dioxide 20 mmol/L (22-29); Chloride 102 mmol/L (98-107); Creatinine Clr Calc Pharmacy 140.4775; Globulin 3.2 g/dL (1.3-4.6); Glucose 87 mg/dL (65-115); Lipase 15 U/L (13-60); Osmolality Calculated 283 mOsm/kg (285-295); Potassium 3.8 mmol/L (3.5-5.1); Sodium 137 mmol/L (136-145); Total Protein 7.7 g/dL (6.6-8.7)
[2024-12-26 18:19] VITALS: PULSE 78; O2SAT 99
== END 2024-12-26 18:20 | disposition home or self-care (01) ==
PROVIDERS: Emergency Provider Family Medicine; PCP Nurse Practitioner Family
DX: K92.1 Melena (principal); F17.210 Nicotine dependence, cigarettes, uncomplicated; Z85.028 Personal history of other malignant neoplasm of stomach
CPT/HCPCS: 80053; 83690; 85025; 99283

== ENCOUNTER 2025-01-18 13:00 | Oncology outpatient (recurring) (ONCR) | payer BC, MEDICAID, SELFPAY ==
[2024-12-21] MEDS: iohexol 350 mg/mL 500 mL Btl (per mL) PO (12:39)
[2024-12-21] MEDS: iohexol 350 mg/mL 500 mL Btl (per mL) IV (12:39)
--- NOTE | 2024-12-21 12:45 | CTR_ITS ---
PROCEDURE INFORMATION: Exam: CT Chest With Contrast; Diagnostic Exam date and time: 12/21/2024 12:35 PM Age: 59 years old Clinical indication: Condition or disease; Other: Hemochromatosis; Prior surgery; Surgery date: 6+ months; Surgery type: Gb, hernia TECHNIQUE: Imaging protocol: Diagnostic computed tomography of the chest with contrast. Radiation optimization: All CT scans at this facility use at least one of these dose optimization techniques: automated exposure control; mA and/or kV adjustment per patient size (includes targeted exams where dose is matched to clinical indication); or iterative reconstruction. Contrast material: OMNI 350; Contrast volume: 100 ml; Contrast route: INTRAVENOUS (IV); COMPARISON: MR shoulder LT wo con* [id number] 08/04/2024 3:19 PM RADIATION DOSE METRICS: Total DLP (mGy-cm): 1236.47 FINDINGS: Lungs: A few small blebs are noted in both apices. I see no lung mass or infiltrate. Pleural spaces: Unremarkable. No pneumothorax. No pleural effusion. Heart: Unremarkable. No cardiomegaly. No pericardial effusion. Lymph nodes: Unremarkable. No enlarged lymph nodes. Vasculature: Unremarkable. No aortic aneurysm. Bones/joints: Unremarkable. No acute fracture. Soft tissues: Unremarkable. PROCEDURE INFORMATION: Exam: CT Abdomen And Pelvis With Contrast Exam date and time: 12/21/2024 12:35 PM Age: 59 years old Clinical indication: Condition or disease; Other: Hemochromatosis; Prior surgery; Surgery date: 6+ months; Surgery type: Gb, hernia TECHNIQUE: Imaging protocol: Computed tomography of the abdomen and pelvis with contrast. Radiation optimization: All CT scans at this facility use at least one of these dose optimization techniques: automated exposure control; mA and/or kV adjustment per patient size (includes targeted exams where dose is matched to clinical indication); or iterative reconstruction. Contrast material: OMNI 350; Contrast volume: 100 ml; Contrast route: INTRAVENOUS (IV); COMPARISON: ES surgery / GI images 09/28/2024 9:53 AM RADIATION DOSE METRICS: Total DLP (mGy-cm): 1236.47 FINDINGS: Lungs: Lung bases are clear. No pleural effusion. Liver: Normal. No mass. Gallbladder and biliary ducts: The gallbladder has been resected. Pancreas: Normal. No ductal dilation. Spleen: Normal. No splenomegaly. Adrenal glands: Normal. No mass. Kidneys and ureters: Normal. No hydronephrosis. Stomach and bowel: Multiple diverticula involve the sigmoid colon. There is no sign of diverticulitis. Appendix: No evidence of appendicitis. Intraperitoneal space: Unremarkable. No free air. No significant fluid collection. Vasculature: Unremarkable. No abdominal aortic aneurysm. Lymph nodes: Unremarkable. No enlarged lymph nodes. Urinary bladder: Unremarkable as visualized. Reproductive: The prostate gland is abnormally enlarged. Bones/joints: Unremarkable. No acute fracture. Soft tissues: Unremarkable. CT/CT chest abdpel w/*[id number] IMPRESSION: No acute findings. IMPRESSION: 1. No acute findings. 2. Prostate enlargement 3. Sigmoid diverticulosis
[2025-01-18 13:24] LABS: Hematocrit 47.1 % (37-53); Hemoglobin 16.30 g/dL (11.27-16.99); Mean Corpuscular HGB Conc 34.6 g/dL (30-55); Mean Corpuscular Hemoglobin 32.5 pg (27-33); Mean Corpuscular Volume 93.8 fl (82-101); Nucleated Red Blood Cells % 0 %; Platelet Count 188 10^3/cmm (157-399); Red Blood Count 5.02 10^6/uL (3.85-5.65); White Blood Count 9.04 10^3/uL (3.29-11.43)
[2025-01-18 13:39] LABS: Alanine Aminotransferase 20 U/L (0-41); Albumin Level 4.4 g/dL (3.5-5.2); Alkaline Phosphatase 83 U/L (40-130); Blood Urea Nitrogen 7 mg/dL (6-20); Calcium 9.0 mg/dL (8.5-10.5); Carbon Dioxide 26 mmol/L (22-29); Chloride 103 mmol/L (98-107); Creatinine Clr Calc Pharmacy 173.5927; Ferritin 497 ng/mL (30-400); Globulin 2.6 g/dL (1.3-4.6); Glucose 95 mg/dL (65-115); Osmolality Calculated 288 mOsm/kg (285-295); Sodium 140 mmol/L (136-145); Total Protein 7.0 g/dL (6.6-8.7)
[2025-01-18 13:43] LABS: Anion Gap 14.6 (5-19); Aspartate Amino Transferase 23 U/L (0-40); Potassium 3.6 mmol/L (3.5-5.1)
== END 2025-01-18 23:59 | disposition home or self-care (01) ==
PROVIDERS: PCP Nurse Practitioner Family; Visit Provider Internal Medicine
DX: Z53.9 Procedure and treatment not carried out, unspecified reason (principal); E83.110 Hereditary hemochromatosis; Z79.899 Other long term (current) drug therapy
CPT/HCPCS: 71260; 74177; 80053; 82728; 83615; 85025; 99195

== ENCOUNTER → 2025-01-23 08:44 | Outpatient (BNVA) | payer BC, SELFPAY | PROVIDERS: PCP Nurse Practitioner Family; Visit Provider Nurse Practitioner | DX: R19.7 Diarrhea, unspecified (principal); C20 Malignant neoplasm of rectum | CPT/HCPCS: 82270; 87177; 87209 ==

== ENCOUNTER 2025-02-08 14:41 | Oncology outpatient (recurring) (ONCR) | payer BC, MEDICAID, SELFPAY ==
[2025-02-08 15:13] LABS: Hematocrit 41.6 % (37-53); Hemoglobin 14.20 g/dL (11.27-16.99); Mean Corpuscular HGB Conc 34.1 g/dL (30-55); Mean Corpuscular Hemoglobin 32.6 pg (27-33); Mean Corpuscular Volume 95.6 fl (82-101); Nucleated Red Blood Cells % 0 %; Platelet Count 195 10^3/cmm (157-399); Red Blood Count 4.35 10^6/uL (3.85-5.65); White Blood Count 7.41 10^3/uL (3.29-11.43)
[2025-02-08 15:36] LABS: Alanine Aminotransferase 24 U/L (0-41); Albumin Level 4.2 g/dL (3.5-5.2); Alkaline Phosphatase 90 U/L (40-130); Anion Gap 13.8 (5-19); Aspartate Amino Transferase 28 U/L (0-40); Blood Urea Nitrogen 11 mg/dL (6-20); Calcium 8.9 mg/dL (8.5-10.5); Carbon Dioxide 23 mmol/L (22-29); Chloride 104 mmol/L (98-107); Creatinine Clr Calc Pharmacy 147.4495; Ferritin 224 ng/mL (30-400); Globulin 2.6 g/dL (1.3-4.6); Glucose 99 mg/dL (65-115); Osmolality Calculated 283 mOsm/kg (285-295); Potassium 3.8 mmol/L (3.5-5.1); Sodium 137 mmol/L (136-145); Total Protein 6.8 g/dL (6.6-8.7)
[2025-02-08 15:57] LABS: Slide Review Slide Review Perform
== END 2025-02-18 23:59 | disposition home or self-care (01) ==
PROVIDERS: PCP Nurse Practitioner Family; Visit Provider Internal Medicine
DX: E83.110 Hereditary hemochromatosis (principal)
CPT/HCPCS: 36415; 80053; 82728; 85025; 99195

== ENCOUNTER 2025-03-08 12:17 | Oncology outpatient (recurring) (ONCR) | payer BC, MEDICAID, SELFPAY ==
[2025-03-08 12:52] LABS: Hematocrit 45.6 % (37-53); Hemoglobin 15.60 g/dL (11.27-16.99); Mean Corpuscular HGB Conc 34.2 g/dL (30-55); Mean Corpuscular Hemoglobin 32.8 pg (27-33); Mean Corpuscular Volume 96.0 fl (82-101); Nucleated Red Blood Cells % 0 %; Platelet Count 189 10^3/cmm (157-399); Red Blood Count 4.75 10^6/uL (3.85-5.65); White Blood Count 7.50 10^3/uL (3.29-11.43)
[2025-03-08 13:09] LABS: Alanine Aminotransferase 25 U/L (0-41); Albumin Level 4.4 g/dL (3.5-5.2); Alkaline Phosphatase 94 U/L (40-130); Anion Gap 16.0 (5-19); Aspartate Amino Transferase 23 U/L (0-40); Blood Urea Nitrogen 13 mg/dL (6-20); Calcium 9.4 mg/dL (8.5-10.5); Carbon Dioxide 22 mmol/L (22-29); Chloride 105 mmol/L (98-107); Creatinine Clr Calc Pharmacy 146.7517; Ferritin 86 ng/mL (30-400); Globulin 3.1 g/dL (1.3-4.6); Glucose 130 mg/dL (65-115); Iron 53 ug/dL (59-158); Osmolality Calculated 290 mOsm/kg (285-295); Potassium 4.0 mmol/L (3.5-5.1); Sodium 139 mmol/L (136-145); Total Iron Binding Capacity 286 mcg/dl; Total Protein 7.5 g/dL (6.6-8.7); Unsaturated Iron Binding 233 ug/dL (112-347)
[2025-03-08 13:13] LABS: Slide Review Slide Review Perform
== END 2025-03-20 23:59 | disposition home or self-care (01) ==
PROVIDERS: PCP Nurse Practitioner Family; Visit Provider Internal Medicine
DX: E83.110 Hereditary hemochromatosis (principal)
CPT/HCPCS: 36415; 80053; 82728; 83540; 83550; 83615; 85025

== ENCOUNTER → 2025-03-20 13:15 | Outpatient (BNVA) | payer BC, SELFPAY | PROVIDERS: PCP Nurse Practitioner Family; Visit Provider Nurse Practitioner Family | DX: Z01.89 Encounter for other specified special examinations (principal) | CPT/HCPCS: 88304 ==

== ENCOUNTER 2025-04-12 09:35 | Oncology outpatient (recurring) (ONCR) | payer MEDICARE, MEDICAID, SELFPAY ==
[2025-04-12 10:03] LABS: Hematocrit 47.8 % (37-53); Hemoglobin 16.30 g/dL (11.27-16.99); Mean Corpuscular HGB Conc 34.1 g/dL (30-55); Mean Corpuscular Hemoglobin 32.3 pg (27-33); Mean Corpuscular Volume 94.7 fl (82-101); Nucleated Red Blood Cells % 0 %; Platelet Count 157 10^3/cmm (157-399); Red Blood Count 5.05 10^6/uL (3.85-5.65); White Blood Count 6.91 10^3/uL (3.29-11.43)
[2025-04-12 10:18] LABS: Alanine Aminotransferase 33 U/L (0-41); Albumin Level 4.2 g/dL (3.5-5.2); Alkaline Phosphatase 92 U/L (40-130); Anion Gap 15.3 (5-19); Aspartate Amino Transferase 24 U/L (0-40); Blood Urea Nitrogen 13 mg/dL (6-20); Calcium 9.2 mg/dL (8.5-10.5); Carbon Dioxide 24 mmol/L (22-29); Chloride 102 mmol/L (98-107); Ferritin 103 ng/mL (30-400); Globulin 3.2 g/dL (1.3-4.6); Glucose 127 mg/dL (65-115); Iron 59 ug/dL (59-158); Osmolality Calculated 286 mOsm/kg (285-295); Potassium 4.3 mmol/L (3.5-5.1); Sodium 137 mmol/L (136-145); Total Iron Binding Capacity 258 mcg/dl; Total Protein 7.4 g/dL (6.6-8.7); Unsaturated Iron Binding 199 ug/dL (112-347)
[2025-04-12 10:26] LABS: Creatinine Clr Calc Pharmacy 148.8436
[2025-04-12 11:55] VITALS: BP 148/88; PULSE 78; RESP 17; TEMP 36.6; O2SAT 97
== END 2025-04-20 23:59 | disposition home or self-care (01) ==
PROVIDERS: PCP Nurse Practitioner Family; Visit Provider Internal Medicine
DX: E83.110 Hereditary hemochromatosis (principal)
CPT/HCPCS: 36415; 80053; 82728; 83540; 83550; 83615; 85025; 99195

== ENCOUNTER → 2025-04-16 15:12 | Outpatient (BNVA) | payer MEDICARE, MEDICAID, OTHER, SELFPAY | PROVIDERS: PCP Nurse Practitioner Family; Visit Provider Nurse Practitioner Family | DX: Z12.5 Encounter for screening for malignant neoplasm of prostate (principal) | CPT/HCPCS: G0103 ==

== ENCOUNTER 2025-05-30 13:52 | Oncology outpatient (recurring) (ONCR) | payer MEDICARE, MEDICAID, SELFPAY ==
[2025-05-30 14:30] LABS: Hematocrit 44.6 % (37-53); Hemoglobin 14.90 g/dL (11.27-16.99); Mean Corpuscular HGB Conc 33.4 g/dL (30-55); Mean Corpuscular Hemoglobin 30.3 pg (27-33); Mean Corpuscular Volume 90.8 fl (82-101); Nucleated Red Blood Cells % 0 %; Platelet Count 164 10^3/cmm (157-399); Red Blood Count 4.91 10^6/uL (3.85-5.65); White Blood Count 6.36 10^3/uL (3.29-11.43)
[2025-05-30 14:50] LABS: Alanine Aminotransferase 23 U/L (0-41); Albumin Level 4.2 g/dL (3.5-5.2); Alkaline Phosphatase 81 U/L (40-130); Aspartate Amino Transferase 26 U/L (0-40); Blood Urea Nitrogen 9 mg/dL (6-20); Calcium 9.2 mg/dL (8.5-10.5); Carbon Dioxide 23 mmol/L (22-29); Chloride 105 mmol/L (98-107); Ferritin 48 ng/mL (30-400); Globulin 2.9 g/dL (1.3-4.6); Glucose 109 mg/dL (65-115); Osmolality Calculated 287 mOsm/kg (285-295); Sodium 139 mmol/L (136-145); Total Protein 7.1 g/dL (6.6-8.7)
[2025-05-30 15:27] LABS: Anion Gap 15.0 (5-19); Potassium 4.0 mmol/L (3.5-5.1)
[2025-05-30 15:29] LABS: Slide Review Slide Review Perform
== END 2025-06-20 23:59 | disposition home or self-care (01) ==
PROVIDERS: Internal Medicine; PCP Nurse Practitioner Family; Visit Provider Nurse Practitioner
DX: E83.110 Hereditary hemochromatosis (principal); F17.210 Nicotine dependence, cigarettes, uncomplicated; K57.31 Diverticulosis of large intestine without perforation or abscess with bleeding
CPT/HCPCS: 36415; 80053; 82728; 85025; 99195; 99214